=== PATIENT | female | born 1975 | race American Indian/Alaskan Native ===

== ENCOUNTER → 2024-04-09 | Outpatient (CLI) | payer MEDICAID, SELFPAY | END | disposition home or self-care (01) | PROVIDERS: PCP Physician Assistant; Referring Provider Physician Assistant; Visit Provider Student in an Organized Health Care Education/Training Program | DX: L97.521 Non-pressure chronic ulcer of other part of left foot limited to breakdown of skin (principal); M86.8X7 Other osteomyelitis, ankle and foot; R60.0 Localized edema; I10 Essential (primary) hypertension; M21.6X1 Other acquired deformities of right foot; E11.65 Type 2 diabetes mellitus with hyperglycemia; Z79.4 Long term (current) use of insulin | CPT/HCPCS: 97597; 99213; A9270; G0463 ==

== ENCOUNTER → 2024-04-23 | Outpatient (CLI) | payer MEDICAID, SELFPAY | END | disposition home or self-care (01) | LOC: SWHD 10:53 | PROVIDERS: PCP Physician Assistant; Referring Provider Physician Assistant; Visit Provider Surgery | DX: E11.621 Type 2 diabetes mellitus with foot ulcer (principal); L97.522 Non-pressure chronic ulcer of other part of left foot with fat layer exposed; M86.8X7 Other osteomyelitis, ankle and foot; R60.0 Localized edema; I10 Essential (primary) hypertension; M21.6X1 Other acquired deformities of right foot; E11.65 Type 2 diabetes mellitus with hyperglycemia; Z79.4 Long term (current) use of insulin | CPT/HCPCS: 11042; A9270 ==

== ENCOUNTER → 2024-05-07 | Outpatient (CLI) | payer MEDICAID, SELFPAY | END | disposition home or self-care (01) | LOC: SWHD 10:47 | PROVIDERS: PCP Physician Assistant; Referring Provider Physician Assistant; Visit Provider Student in an Organized Health Care Education/Training Program | DX: L97.522 Non-pressure chronic ulcer of other part of left foot with fat layer exposed (principal); M86.8X7 Other osteomyelitis, ankle and foot; R60.0 Localized edema; I10 Essential (primary) hypertension; M21.6X1 Other acquired deformities of right foot; E11.65 Type 2 diabetes mellitus with hyperglycemia; Z79.4 Long term (current) use of insulin | CPT/HCPCS: 99213; A9270; G0463 ==

== ENCOUNTER → 2024-05-14 | Outpatient (CLI) | payer MEDICAID, SELFPAY | END | disposition home or self-care (01) | LOC: SWHD 10:49 | PROVIDERS: PCP Physician Assistant; Referring Provider Physician Assistant; Visit Provider Student in an Organized Health Care Education/Training Program | DX: E11.621 Type 2 diabetes mellitus with foot ulcer (principal); L97.522 Non-pressure chronic ulcer of other part of left foot with fat layer exposed; M86.8X7 Other osteomyelitis, ankle and foot; R60.0 Localized edema; I10 Essential (primary) hypertension; M21.6X1 Other acquired deformities of right foot; E11.65 Type 2 diabetes mellitus with hyperglycemia; Z79.4 Long term (current) use of insulin | CPT/HCPCS: 11042; A9270 ==

== ENCOUNTER → 2024-05-21 | Outpatient (CLI) | payer MEDICAID, SELFPAY | END | disposition home or self-care (01) | LOC: SWHD 10:46 | PROVIDERS: PCP Physician Assistant; Referring Provider Physician Assistant; Visit Provider Student in an Organized Health Care Education/Training Program | DX: E11.621 Type 2 diabetes mellitus with foot ulcer (principal); L97.522 Non-pressure chronic ulcer of other part of left foot with fat layer exposed; M86.8X7 Other osteomyelitis, ankle and foot; R60.0 Localized edema; I10 Essential (primary) hypertension; M21.6X1 Other acquired deformities of right foot; E11.65 Type 2 diabetes mellitus with hyperglycemia; Z79.4 Long term (current) use of insulin | CPT/HCPCS: 97597; A9270 ==

== ENCOUNTER → 2024-05-28 | Outpatient (CLI) | payer MEDICAID, SELFPAY | END | disposition home or self-care (01) | LOC: SWHD 11:09 | PROVIDERS: PCP Physician Assistant; Referring Provider Physician Assistant; Visit Provider Surgery | DX: L97.322 Non-pressure chronic ulcer of left ankle with fat layer exposed (principal); I10 Essential (primary) hypertension; M17.0 Bilateral primary osteoarthritis of knee; M19.042 Primary osteoarthritis, left hand; M19.041 Primary osteoarthritis, right hand; M19.09 Primary osteoarthritis, other specified site; F17.200 Nicotine dependence, unspecified, uncomplicated; N18.32 Chronic kidney disease, stage 3b; R60.0 Localized edema; I73.9 Peripheral vascular disease, unspecified; E66.9 Obesity, unspecified | CPT/HCPCS: 99213; A9270; G0463 ==

== ENCOUNTER → 2024-06-04 | Outpatient (CLI) | payer MEDICAID, SELFPAY | END | disposition home or self-care (01) | LOC: SWHD 10:57 | PROVIDERS: PCP Physician Assistant; Referring Provider Physician Assistant; Visit Provider Student in an Organized Health Care Education/Training Program | DX: T81.89XA Other complications of procedures, not elsewhere classified, initial encounter (principal); L97.322 Non-pressure chronic ulcer of left ankle with fat layer exposed; I10 Essential (primary) hypertension; M17.0 Bilateral primary osteoarthritis of knee; M19.042 Primary osteoarthritis, left hand; M19.041 Primary osteoarthritis, right hand; M19.09 Primary osteoarthritis, other specified site; F17.200 Nicotine dependence, unspecified, uncomplicated; N18.32 Chronic kidney disease, stage 3b; R60.0 Localized edema; I73.9 Peripheral vascular disease, unspecified; E66.9 Obesity, unspecified | CPT/HCPCS: 11042; A9270 ==

== ENCOUNTER → 2024-06-11 | Outpatient (CLI) | payer MEDICAID, SELFPAY | END | disposition home or self-care (01) | LOC: SWHD 10:24 | PROVIDERS: PCP Physician Assistant; Referring Provider Physician Assistant; Visit Provider Student in an Organized Health Care Education/Training Program | DX: L97.522 Non-pressure chronic ulcer of other part of left foot with fat layer exposed (principal); I10 Essential (primary) hypertension; M17.0 Bilateral primary osteoarthritis of knee; M19.042 Primary osteoarthritis, left hand; M19.041 Primary osteoarthritis, right hand; F17.200 Nicotine dependence, unspecified, uncomplicated; N18.32 Chronic kidney disease, stage 3b; R60.0 Localized edema; I73.9 Peripheral vascular disease, unspecified; E66.9 Obesity, unspecified | CPT/HCPCS: 97597; A9270 ==

== ENCOUNTER → 2024-06-18 | Outpatient (CLI) | payer MEDICAID, SELFPAY | END | disposition home or self-care (01) | LOC: SWHD 10:41 | PROVIDERS: PCP Physician Assistant; Referring Provider Physician Assistant; Visit Provider Student in an Organized Health Care Education/Training Program | DX: T81.89XA Other complications of procedures, not elsewhere classified, initial encounter (principal); L97.522 Non-pressure chronic ulcer of other part of left foot with fat layer exposed; M17.0 Bilateral primary osteoarthritis of knee; M19.041 Primary osteoarthritis, right hand; M19.042 Primary osteoarthritis, left hand; F17.200 Nicotine dependence, unspecified, uncomplicated; N18.32 Chronic kidney disease, stage 3b; R60.0 Localized edema; I73.9 Peripheral vascular disease, unspecified; E66.9 Obesity, unspecified | CPT/HCPCS: 17250; A9270 ==

== ENCOUNTER → 2024-06-25 | Outpatient (CLI) | payer MEDICAID, SELFPAY | END | disposition home or self-care (01) | LOC: SWHD 10:17 | PROVIDERS: PCP Physician Assistant; Referring Provider Physician Assistant; Visit Provider Student in an Organized Health Care Education/Training Program | DX: T81.89XA Other complications of procedures, not elsewhere classified, initial encounter (principal); L97.522 Non-pressure chronic ulcer of other part of left foot with fat layer exposed; M17.0 Bilateral primary osteoarthritis of knee; M19.041 Primary osteoarthritis, right hand; M19.042 Primary osteoarthritis, left hand; F17.200 Nicotine dependence, unspecified, uncomplicated; N18.32 Chronic kidney disease, stage 3b; R60.0 Localized edema; I73.9 Peripheral vascular disease, unspecified; E66.9 Obesity, unspecified | CPT/HCPCS: 97597; A9270 ==

== ENCOUNTER → 2024-07-09 | Outpatient (CLI) | payer MEDICAID, SELFPAY | END | disposition home or self-care (01) | PROVIDERS: PCP Physician Assistant; Referring Provider Physician Assistant; Visit Provider Surgery | DX: T81.89XA Other complications of procedures, not elsewhere classified, initial encounter (principal); L97.522 Non-pressure chronic ulcer of other part of left foot with fat layer exposed; M17.0 Bilateral primary osteoarthritis of knee; M19.042 Primary osteoarthritis, left hand; M19.041 Primary osteoarthritis, right hand; F17.200 Nicotine dependence, unspecified, uncomplicated; N18.32 Chronic kidney disease, stage 3b; R60.0 Localized edema; I73.9 Peripheral vascular disease, unspecified; E66.9 Obesity, unspecified | CPT/HCPCS: 11042; A9270 ==

== ENCOUNTER → 2024-07-23 | Outpatient (CLI) | payer MEDICAID, SELFPAY | END | disposition home or self-care (01) | LOC: SWHD 14:42 | PROVIDERS: PCP Physician Assistant; Referring Provider Physician Assistant; Visit Provider Surgery | DX: T81.89XA Other complications of procedures, not elsewhere classified, initial encounter (principal); L97.522 Non-pressure chronic ulcer of other part of left foot with fat layer exposed; M17.0 Bilateral primary osteoarthritis of knee; M19.042 Primary osteoarthritis, left hand; M19.041 Primary osteoarthritis, right hand; F17.200 Nicotine dependence, unspecified, uncomplicated; R60.0 Localized edema; I73.9 Peripheral vascular disease, unspecified; E66.9 Obesity, unspecified | CPT/HCPCS: 11042; A9270 ==

== ENCOUNTER → 2024-07-30 | Outpatient (CLI) | payer MEDICAID, SELFPAY | END | disposition home or self-care (01) | LOC: SWHD 09:04 | PROVIDERS: PCP Physician Assistant; Referring Provider Physician Assistant; Visit Provider Student in an Organized Health Care Education/Training Program | DX: T81.89XA Other complications of procedures, not elsewhere classified, initial encounter (principal); L97.522 Non-pressure chronic ulcer of other part of left foot with fat layer exposed; M17.0 Bilateral primary osteoarthritis of knee; M19.042 Primary osteoarthritis, left hand; M19.041 Primary osteoarthritis, right hand; F17.200 Nicotine dependence, unspecified, uncomplicated; N18.32 Chronic kidney disease, stage 3b; R60.0 Localized edema; I73.9 Peripheral vascular disease, unspecified; E66.9 Obesity, unspecified | CPT/HCPCS: 97597; 29445; A9270 ==

== ENCOUNTER → 2024-08-02 | Outpatient (CLI) | payer MEDICAID, SELFPAY | END | disposition home or self-care (01) | LOC: SWHD 10:15 | PROVIDERS: PCP Physician Assistant; Referring Provider Physician Assistant; Visit Provider Student in an Organized Health Care Education/Training Program | DX: T81.89XA Other complications of procedures, not elsewhere classified, initial encounter (principal); L97.522 Non-pressure chronic ulcer of other part of left foot with fat layer exposed; M17.0 Bilateral primary osteoarthritis of knee; M19.042 Primary osteoarthritis, left hand; M19.041 Primary osteoarthritis, right hand; F17.200 Nicotine dependence, unspecified, uncomplicated; N18.32 Chronic kidney disease, stage 3b; R60.0 Localized edema; I73.9 Peripheral vascular disease, unspecified; E66.9 Obesity, unspecified | CPT/HCPCS: 11042; A9270 ==

== ENCOUNTER → 2024-08-09 | Outpatient (CLI) | payer MEDICAID, SELFPAY | END | disposition home or self-care (01) | LOC: SWHD 09:01 | PROVIDERS: PCP Physician Assistant; Referring Provider Physician Assistant; Visit Provider Student in an Organized Health Care Education/Training Program | DX: T81.89XA Other complications of procedures, not elsewhere classified, initial encounter (principal); L97.522 Non-pressure chronic ulcer of other part of left foot with fat layer exposed; M17.0 Bilateral primary osteoarthritis of knee; M19.042 Primary osteoarthritis, left hand; M19.041 Primary osteoarthritis, right hand; F17.200 Nicotine dependence, unspecified, uncomplicated; N18.32 Chronic kidney disease, stage 3b; R60.0 Localized edema; I73.9 Peripheral vascular disease, unspecified; E66.9 Obesity, unspecified | CPT/HCPCS: 11042; A9270 ==

== ENCOUNTER → 2024-08-16 | Outpatient (CLI) | payer MEDICAID, SELFPAY | END | disposition home or self-care (01) | LOC: SWHD 09:08 | PROVIDERS: PCP Physician Assistant; Referring Provider Physician Assistant; Visit Provider Student in an Organized Health Care Education/Training Program | DX: T81.89XA Other complications of procedures, not elsewhere classified, initial encounter (principal); L97.522 Non-pressure chronic ulcer of other part of left foot with fat layer exposed; M17.0 Bilateral primary osteoarthritis of knee; M19.042 Primary osteoarthritis, left hand; M19.041 Primary osteoarthritis, right hand; F17.200 Nicotine dependence, unspecified, uncomplicated; N18.32 Chronic kidney disease, stage 3b; R60.0 Localized edema; I73.9 Peripheral vascular disease, unspecified; E66.9 Obesity, unspecified | CPT/HCPCS: 11042; A9270 ==

== ENCOUNTER 2024-08-21 19:21 | Emergency (ER) | payer MEDICAID, SELFPAY ==
[2024-08-21 19:22] VITALS: BMI 31.3
[2024-08-21 19:28] VITALS: BP 103/70; PULSE 97; RESP 19; TEMP 37.1; O2SAT 96
--- NOTE | 2024-08-21 20:01 | PD.EDHA ---
ED Headache RME/HPI General Chief Complaint: Headache Stated Complaint: HEADACHE, EYE PAIN, NAUSEA Time Seen by Provider: 08/21/24 19:36 Arrival date/time: 08/21/24 19:21 RME / HPI RME / HPI Narrative: This section includes all my notes and documentations, including HPI, PE, and ED course. Aaron Mosley MD HPI: 48-year-old female here with severe headache on and off since this morning, about 10 hours ago. She describes throbbing, moving in location. With photophobia and phonophobia. And blurred vision with severe nausea. No other complaints ROS: All negative except as documented in HPI. Physical Exam: General: Alert and oriented. Appears uncomfortable. Eyes: Conjunctivae and lids clear. EOMI. PERRL. ENT: No nasal congestion. Pharynx normal. Tympanic membrane normal bilaterally. Neck: Supple. No carotid bruit. Heart: RRR. Lungs: No respiratory distress. Good air movement. No rhonchi, wheezing, rales. Abdomen: Soft and nontender. Normal bowel sounds. No distension. No rebound or guarding. Skin: Warm and dry. Neuro: Alert and oriented X 3. Cranial Nerves II-XII grossly intact. No peripheral motor deficits. I reviewed all diagnostic test results. My review of the head CT report is no acute findings. At this point, diagnoses include migraine headache. Treatment here included Zofran ODT and ibuprofen and Imitrex and two Tylenol #3. Significant improvement noted. Recommended supportive care. Based on my best medical judgment, made decision no further evaluation or treatment indicated at this time. Patient understands and agrees to the discharge instructions customized and printed, see below. Discharge Instructions from Dr. Mosley: --After evaluation, you were treated for a migraine headache.? Fortunately, there is no life-threatening condition.? Such as stroke or brain tumor. --When you get home, try to get some rest in the dark.? This can be the best treatment for migraine headache. --Try to eat regular nutritious meals, maintain good hydration, decrease stress, and get regular physical exercise.? Increase oral fluid and maintain clear urine.? If dark or yellow, increase oral fluid. --Take Zofran for nausea.? With migraines, controlling your nausea as soon as possible can help. --Take Imitrex as needed.? This works better if you take it at the onset of a migraine headache. Tylenol with codeine for severe pain. --See a private doctor of your choice on for recheck and further care. Ask to consider a referral to see a neurologist. --Read attached patient handouts and seek immediate medical care with worsening or with any concerns.? Aaron Mosley MD Related Data Home Medications ?Medication ?Instructions ?Recorded ?Confirmed atorvastatin 40 mg tablet 40 mg PO QDAY 02/03/21 11/12/23 insulin glargine 100 unit/mL (3 40 unit subcut HS 09/29/22 11/12/23 mL) subcutaneous pen (Basaglar KwikPen U-100 Insulin) semaglutide 7 mg tablet (Rybelsus) 7 mg PO QDAY 09/29/22 11/12/23 lisinopril 5 mg tablet 5 mg PO QDAY 11/12/23 11/12/23 Previous Rx's ?Medication ?Instructions ?Recorded blood-glucose sensor (FreeStyle #1 ea 11/14/23 Destiny 3 Sensor device) insulin lispro 100 unit/mL 13 unit (0.13 mL) subcut TID #15 mL 11/14/23 subcutaneous pen (Admelog SoloStar U-100 Insulin lispro) acetaminophen 300 mg-codeine 30 mg 2 tab PO Q8H PRN pain #20 tabs 08/21/24 tablet ondansetron 4 mg disintegrating 4 mg PO TID PRN nausea and 08/21/24 tablet vomiting 30 days #10 tabs sumatriptan succinate 25 mg tablet 25 mg PO Q2H PRN migraine headache 08/21/24 (Imitrex) #10 tabs Allergies Allergy/AdvReac Type Severity Reaction Status Date / Time No Known Allergies Allergy Verified 08/21/24 19:22 Course Quality Measures none Orders Category Date Time Status CT head/brain wo con Stat Exams 08/21/24 20:02 Completed ACETAMINOPHEN w/COD 300-30 [Tylenol w/Cod #3] Med 08/21/24 20:02 Discontinued 2 tab PO X1 ONE Ibuprofen Tab [Motrin Tab] Med 08/21/24 20:02 Discontinued 800 mg PO X1 ONE Ondansetron Odt [Zofran Odt] Med 08/21/24 20:02 Discontinued 4 mg PO X1 ONE SUMAtriptan [Imitrex] Med 08/21/24 20:02 Discontinued 50 mg PO X1 ONE Vital Signs Vital signs: Vital Signs Temperature 98.8 F 08/21/24 19:28 Pulse Rate 97 08/21/24 19:28 Respiratory Rate 19 08/21/24 19:28 Blood Pressure 103/70 08/21/24 19:28 Pulse Oximetry (%) 96 08/21/24 19:28 Oxygen Delivery Method Room Air 08/21/24 19:28 Headache Patient data External records reviewed:: [facility] previous records Clinical information provided by:: patient Social determinants that could affect healthcare access:: none Patient has the following chronic illnesses:: DM How is presenting disease/condition affected by chronic disease/condition?: uneffected by Evaluation data The following diagnostics were reviewed and interpreted by me:: radiology exam(s) Lab and/or radiology exams considered but not ordered:: None Interpretation Summary: My review of the head CT report is no acute findings. Medications / Prescriptions Medications or Prescriptions considered but not ordered:: None Medication administrations:: Medication Administration History Discontinued Medications Acetaminophen/Codeine Phosphate (Acetaminophen W/Cod 300-30 Tablet) 2 tab PO X1 ONE Stop: 08/21/24 20:03 Last Admin: 08/21/24 21:08 Dose: 2 tab Documented By: DANIEL Ibuprofen (Ibuprofen Tab 400 Mg Tablet) 800 mg PO X1 ONE Stop: 08/21/24 20:03 Last Admin: 08/21/24 21:08 Dose: 800 mg Documented By: DANIEL Ondansetron HCl (Ondansetron Odt 4 Mg Tabrap) 4 mg PO X1 ONE; Protocol Stop: 08/21/24 20:03 Last Admin: 08/21/24 21:08 Dose: 4 mg Documented By: DANIEL Sumatriptan Succinate (Sumatriptan 25 Mg Tablet) 50 mg PO X1 ONE Stop: 08/21/24 20:03 Last Admin: 08/21/24 21:36 Dose: Not Given Documented By: BOB Non-Admin Reason: Discontinued Zofran and Imitrex and ibuprofen and two Tylenol #3 Consultations Consultation(s) initiated? (list below): No Diagnosis Differential diagnosis headache: migraine, tension headache, subarachnoid hemorrhage and sinusitis Most likely diagnosis given after review of the tests above:: Migraine headache Admission Indicated Admission indicated?: not indicated Explain why admission is indicated or not indicated:: With significant improvement, there was no indication for admission. Admission Request Was there a request for admission?: No Disposition Plan Disposition Plan: Discharge Discharge Attestation Discharge Attestation: The patient and all family members were given an opportunity to ask questions and understood the discharge instructions. Discharge instructions specifically effects, indications for sooner follow up or return to the emergency department, and the expected course of current diagnosis. Patient condition: Stable Discharge Plan Plan Patient Disposition: HOME (Self Care) Prescriptions/Referrals Prescriptions/Med Rec: New sumatriptan succinate [Imitrex] 25 mg tablet 25 mg PO Q2H PRN (Reason: migraine headache) Qty: 10 0RF Rx Instructions: do not exceed 8 doses per 24 hrs acetaminophen-codeine 300-30 mg tablet 2 tab PO Q8H MDD 6 PRN (Reason: pain) Qty: 20 0RF ondansetron 4 mg tablet,disintegrating 4 mg PO TID PRN (Reason: nausea and vomiting) 30 Days Qty: 10 0RF No Action atorvastatin 40 mg tablet 40 mg PO QDAY Patient Comments: TAKE 1 TABLET BY MOUTH EVERY DAY lisinopril 5 mg tablet 5 mg PO QDAY Patient Comments: TAKE 1 TABLET BY MOUTH EVERY DAY insulin lispro [Admelog SoloStar U-100 Insulin] 100 unit/mL insulin pen 13 unit SUBCUT TID Qty: 15 3RF Patient Comments: INJECT BY SUBCUTANEOUS ROUTE PER PRESCRIBER'S INSTRUCTIONS. 20 UNITS WITH MEALS 3 TIMES A DAY Rx Instructions: with meals (DME) FreeStyle Destiny 3 Sensor Device See Rx Instructions .Route Qty: 1 0RF Rx Instructions: As directed insulin glargine [Basaglar KwikPen U-100 Insulin] 100 unit/mL (3 mL) insulin pen 40 unit SUBCUT HS Patient Comments: INJECT 50 UNITS BY SUBCUTANEOUS ROUTE EVERY DAY Rybelsus 7 mg tablet 7 mg PO QDAY Patient Comments: PLEASE SEE ATTACHED FOR DETAILED DIRECTIONS Referrals: No Primary/Family,Physician [Primary Care Provider] - In 1 week Problem List Clinical Impression: Migraine headache Patient/Caregiver Discharge Instructions Discharge Activity: activity as tolerated Education Materials: ED Headache, Migraine, Classic Additional Instructions: Discharge Instructions from Dr. Mosley: --After evaluation, you were treated for a migraine headache.? Fortunately, there is no life-threatening condition.? Such as stroke or brain tumor. --When you get home, try to get some rest in the dark.? This can be the best treatment for migraine headache. --Try to eat regular nutritious meals, maintain good hydration, decrease stress, and get regular physical exercise.? Increase oral fluid and maintain clear urine.? If dark or yellow, increase oral fluid. --Take Zofran for nausea.? With migraines, controlling your nausea as soon as possible can help. --Take Imitrex as needed.? This works better if you take it at the onset of a migraine headache. Tylenol with codeine for severe pain. --See a private doctor of your choice on for recheck and further care. Ask to consider a referral to see a neurologist. --Read attached patient handouts and seek immediate medical care with worsening or with any concerns.? Print Language: Polish Stand Alone Forms: Elyssa Award Info., Patient Portal Info Letter
--- NOTE | 2024-08-21 20:02 | XR_ITS ---
Examination: CT brain head without contrast. 2-D sagittal coronal reconstructions Date and time of exam:August 21, 20242016 hrs. Indications: Onset severe headache today CTDI: vol (mGy):50.4 DLP: (mGycm):1003 Technique: Multiple CT axial sections of the brain have been obtained, 5 mm slice thickness. Contrast has not been administered. 2-D sagittal, coronal reconstructions have been obtained Low dose protocols were performed. One or more of the following dose reduction techniques were used; automated exposure control, adjustment of the mA and/or KV according to patient size, use of iterative reconstruction technique. Findings: No significant ventricular enlargement. Intra-axial or extra-axial hemorrhage density is not seen. No mass effect or midline shift Basal cisterns are not remarkable. Fourth ventricle is midline. Cranial vault intact. Impression: Negative for acute hemorrhage, mass effect or midline shift Advise clinical correlation follow-up accordingly
[2024-08-21] MEDS: IBUPROFEN TAB 400 MG TABLET 800 MG PO (21:08)
[2024-08-21] MEDS: ACETAMINOPHEN w/COD 300-30 TABLET 2 TAB PO (21:08)
[2024-08-21] MEDS: ONDANSETRON ODT 4 MG TABRAP PO (21:08)
[2024-08-21 21:52] VITALS: BP 121/82; PULSE 90; RESP 17; TEMP 36.9; O2SAT 96
== END 2024-08-21 21:54 | disposition home or self-care (01) ==
PROVIDERS: Emergency Provider Emergency Medicine
DX: G43.909 Migraine, unspecified, not intractable, without status migrainosus (principal)
CPT/HCPCS: 70450; 99284; Q0162; A9270

== ENCOUNTER → 2024-08-23 | Outpatient (CLI) | payer MEDICAID, SELFPAY | END | disposition home or self-care (01) | PROVIDERS: PCP Physician Assistant; Referring Provider Physician Assistant; Visit Provider Student in an Organized Health Care Education/Training Program | DX: T81.89XA Other complications of procedures, not elsewhere classified, initial encounter (principal); L97.522 Non-pressure chronic ulcer of other part of left foot with fat layer exposed; M17.0 Bilateral primary osteoarthritis of knee; M19.042 Primary osteoarthritis, left hand; M19.041 Primary osteoarthritis, right hand; F17.200 Nicotine dependence, unspecified, uncomplicated; N18.32 Chronic kidney disease, stage 3b; R60.0 Localized edema; I73.9 Peripheral vascular disease, unspecified; E66.9 Obesity, unspecified; M25.872 Other specified joint disorders, left ankle and foot | CPT/HCPCS: 97597; A9270 ==

== ENCOUNTER 2024-08-25 18:16 | Emergency (ER) | payer MEDICAID, SELFPAY ==
[2024-08-25 19:40] VITALS: BP 122/74; PULSE 94; RESP 19; TEMP 37.2; O2SAT 96; BMI 34.4
--- NOTE | 2024-08-25 19:47 | PD.EDANKLE ---
Lower Extremity Injury RME/HPI General Chief Complaint: Ankle/Foot Injury Stated Complaint: INFECTION LEFT FOOT Time Seen by Provider: 08/25/24 18:27 Arrival date/time: 08/25/24 18:16 RME / HPI RME / HPI Narrative: 48-year-old female patient with a significant history of Charcot joint left ankle, came in for evaluation regarding abrasion noted on the lateral aspect of the ankle. Patient was seen by PCP last week and was started on Keflex and doxycycline. Patient continued to have pain that is why the patient came in for prior evaluation. Patient is denying any fever denies any redness denies any other complaints no medication was taken prior to arrival. Patient was advised to have below-knee amputation in the past however still refusing it. Patient is nonambulatory to the left lower extremity. Related Data Home Medications ?Medication ?Instructions ?Recorded ?Confirmed atorvastatin 40 mg tablet 40 mg PO QDAY 02/03/21 11/12/23 insulin glargine 100 unit/mL (3 40 unit subcut HS 09/29/22 11/12/23 mL) subcutaneous pen (Basaglar KwikPen U-100 Insulin) semaglutide 7 mg tablet (Rybelsus) 7 mg PO QDAY 09/29/22 11/12/23 lisinopril 5 mg tablet 5 mg PO QDAY 11/12/23 11/12/23 Previous Rx's ?Medication ?Instructions ?Recorded blood-glucose sensor (FreeStyle #1 ea 11/14/23 Destiny 3 Sensor device) insulin lispro 100 unit/mL 13 unit (0.13 mL) subcut TID #15 mL 11/14/23 subcutaneous pen (Admelog SoloStar U-100 Insulin lispro) acetaminophen 300 mg-codeine 30 mg 2 tab PO Q8H PRN pain #20 tabs 08/21/24 tablet ondansetron 4 mg disintegrating 4 mg PO TID PRN nausea and 08/21/24 tablet vomiting 30 days #10 tabs sumatriptan succinate 25 mg tablet 25 mg PO Q2H PRN migraine headache 08/21/24 (Imitrex) #10 tabs ibuprofen 800 mg tablet 800 mg PO TID PRN pain #30 tabs 08/25/24 Allergies Allergy/AdvReac Type Severity Reaction Status Date / Time No Known Allergies Allergy Verified 08/25/24 18:18 Review of Systems Review of Systems Narrative Review of Systems: Review of system reviewed and within normal limits except mentioned in HPI ED Exam Narrative Physical exam: VITAL SIGNS: Reviewed. GENERAL APPEARANCE: Alert and interactive, follows commands, no acute distress, HEAD AND FACE: Non-traumatic. ENT: PERRL, pink conjunctivitis, eyelid no trauma, Mucous membrane moist. NECK: Supple, nontender, no nuchal rigidity. RECTAL: Deferred. GENITAL: Deferred. NEUROLOGICAL: Gross motor function intact sensory function intact, Appropriate for age. MUSCULOSKELETAL: low back nontender, full range of motion. EXTREMITIES: Left ankle deformity, swelling, no redness with abrasion noted in the lateral aspect, limitation range of motion. SKIN: Color pink, dry, no rash, no lacerations, no abrasions, no contusions. LYMPHATICS: Deferred. Course Quality Measures none Orders Category Date Time Status Ketorolac Inj [Toradol Inj] Med 08/25/24 19:47 Discontinued 30 mg IM X1 ONE Vital Signs Vital signs: Vital Signs Temperature 98.9 F 08/25/24 19:40 Pulse Rate 94 08/25/24 19:40 Respiratory Rate 19 08/25/24 19:40 Blood Pressure 122/74 08/25/24 19:40 Pulse Oximetry (%) 96 08/25/24 19:40 Oxygen Delivery Method Room Air 08/25/24 19:40 Extremity Injury, Lower MDM Narrative MDM Narrative:: 48-year-old female patient with a significant history of Charcot joint left ankle, came in for evaluation regarding abrasion noted on the lateral aspect of the ankle. Patient was seen by PCP last week and was started on Keflex and doxycycline. Patient continued to have pain that is why the patient came in for prior evaluation. Patient is denying any fever denies any redness denies any other complaints no medication was taken prior to arrival. Patient was advised to have below-knee amputation in the past however still refusing it. Patient is nonambulatory to the left lower extremity. Clinically there is no sign of redness, infection to these Charcot joint or ankle. There is an abrasion however is not infected. Patient was advised to see her PCP and for referral to orthopedic surgeon for definitive management of the Charcot joints possible amputation below the knee. Patient data External records reviewed:: None Clinical information provided by:: patient Social determinants that could affect healthcare access:: none Patient has the following chronic illnesses:: Diabetes mellitus, history of Charcot joint ankle How is presenting disease/condition affected by chronic disease/condition?: exacerbated by Evaluation data The following diagnostics were reviewed and interpreted by me:: other (specify) Lab and/or radiology exams considered but not ordered:: None Interpretation Summary: None Medications / Prescriptions Medications or Prescriptions considered but not ordered:: None Medication administrations:: Medication Administration History Discontinued Medications Ketorolac Tromethamine (Ketorolac Inj 60 Mg/2 Ml Vial) 30 mg IM X1 ONE Stop: 08/25/24 19:48 Last Admin: 08/25/24 20:10 Dose: 30 mg Documented By: Toradol IM Consultations Consultation(s) initiated? (list below): No Diagnosis Extremity Injury, Lower Differential Diagnosis: ankle sprain and strain and other (Ankle abrasion, Charcot joint ankle) Most likely diagnosis given after review of the tests above:: Charcot joint ankle, ankle abrasion Admission Indicated Admission indicated?: not indicated Admission Request Was there a request for admission?: No Disposition Plan Disposition Plan: Discharge Discharge Attestation Discharge Attestation: The patient and all family members were given an opportunity to ask questions and understood the discharge instructions. Discharge instructions specifically effects, indications for sooner follow up or return to the emergency department, and the expected course of current diagnosis. Patient condition: Stable Discharge Plan Plan Patient Disposition: HOME (Self Care) Disposition Comment: Stable Prescriptions/Referrals Prescriptions/Med Rec: New ibuprofen 800 mg tablet 800 mg PO TID PRN (Reason: pain) Qty: 30 0RF No Action atorvastatin 40 mg tablet 40 mg PO QDAY Patient Comments: TAKE 1 TABLET BY MOUTH EVERY DAY lisinopril 5 mg tablet 5 mg PO QDAY Patient Comments: TAKE 1 TABLET BY MOUTH EVERY DAY insulin lispro [Admelog SoloStar U-100 Insulin] 100 unit/mL insulin pen 13 unit SUBCUT TID Qty: 15 3RF Patient Comments: INJECT BY SUBCUTANEOUS ROUTE PER PRESCRIBER'S INSTRUCTIONS. 20 UNITS WITH MEALS 3 TIMES A DAY Rx Instructions: with meals (DME) FreeStyle Destiny 3 Sensor Device See Rx Instructions .Route Qty: 1 0RF Rx Instructions: As directed insulin glargine [Basaglar KwikPen U-100 Insulin] 100 unit/mL (3 mL) insulin pen 40 unit SUBCUT HS Patient Comments: INJECT 50 UNITS BY SUBCUTANEOUS ROUTE EVERY DAY Rybelsus 7 mg tablet 7 mg PO QDAY Patient Comments: PLEASE SEE ATTACHED FOR DETAILED DIRECTIONS sumatriptan succinate [Imitrex] 25 mg tablet 25 mg PO Q2H PRN (Reason: migraine headache) Qty: 10 0RF Rx Instructions: do not exceed 8 doses per 24 hrs acetaminophen-codeine 300-30 mg tablet 2 tab PO Q8H MDD 6 PRN (Reason: pain) Qty: 20 0RF ondansetron 4 mg tablet,disintegrating 4 mg PO TID PRN (Reason: nausea and vomiting) 30 Days Qty: 10 0RF Problem List Clinical Impression: Charcot ankle, Abrasion of ankle Patient/Caregiver Discharge Instructions Discharge Activity: activity as tolerated Education Materials: What is Charcot Foot?, ED Abrasions Additional Instructions: Thank you for the opportunity for serving you today. You are stable for discharged . You are advised to: Follow-up with your PCP in 1 to 2 days Return to ED for worsening of symptoms Increase oral fluids Take medication as prescribed Continue taking your antibiotic prescribed by your PCP Daily dressing with bacitracin as needed Print Language: Gambian Stand Alone Forms: Elyssa Award Info., Patient Portal Info Letter PA/GONZALO Supervising Physician PA/GONZALO Supervising Physician: MD David
[2024-08-25] MEDS: KETOROLAC INJ 60 MG/2 ML VIAL 30 MG IM (20:10)
== END 2024-08-25 20:41 | disposition home or self-care (01) ==
LOC: SERX 20:32
PROVIDERS: Emergency Provider Emergency Medicine; PCP Physician Assistant
DX: S90.512A Abrasion, left ankle, initial encounter (principal); A52.16 Charcot's arthropathy (tabetic)
CPT/HCPCS: 96372; 99283; J1885

== ENCOUNTER → 2024-08-30 | Outpatient (CLI) | payer MEDICAID, SELFPAY | END | disposition home or self-care (01) | LOC: SWHD 09:55 | PROVIDERS: PCP Physician Assistant; Referring Provider Physician Assistant; Visit Provider Student in an Organized Health Care Education/Training Program | DX: T81.89XA Other complications of procedures, not elsewhere classified, initial encounter (principal); L97.522 Non-pressure chronic ulcer of other part of left foot with fat layer exposed; M17.0 Bilateral primary osteoarthritis of knee; M19.042 Primary osteoarthritis, left hand; M19.041 Primary osteoarthritis, right hand; F17.200 Nicotine dependence, unspecified, uncomplicated; E66.9 Obesity, unspecified; I73.9 Peripheral vascular disease, unspecified; R60.0 Localized edema; M25.872 Other specified joint disorders, left ankle and foot; N18.32 Chronic kidney disease, stage 3b | CPT/HCPCS: 97597; A9270 ==

== ENCOUNTER → 2024-09-06 | Outpatient (CLI) | payer MEDICAID, SELFPAY | END | disposition home or self-care (01) | LOC: SWHD 10:24 | PROVIDERS: PCP Physician Assistant; Referring Provider Physician Assistant; Visit Provider Surgery | DX: L97.522 Non-pressure chronic ulcer of other part of left foot with fat layer exposed (principal); M17.0 Bilateral primary osteoarthritis of knee; M19.042 Primary osteoarthritis, left hand; M19.041 Primary osteoarthritis, right hand; F17.200 Nicotine dependence, unspecified, uncomplicated; E66.9 Obesity, unspecified; I73.9 Peripheral vascular disease, unspecified; R60.0 Localized edema; M25.872 Other specified joint disorders, left ankle and foot; N18.32 Chronic kidney disease, stage 3b | CPT/HCPCS: 11042; A9270 ==

== ENCOUNTER → 2024-09-13 | Outpatient (CLI) | payer MEDICAID, SELFPAY | END | disposition home or self-care (01) | LOC: SWHD 10:15 | PROVIDERS: PCP Physician Assistant; Referring Provider Physician Assistant; Visit Provider Student in an Organized Health Care Education/Training Program | DX: E11.621 Type 2 diabetes mellitus with foot ulcer (principal); L97.522 Non-pressure chronic ulcer of other part of left foot with fat layer exposed; M17.0 Bilateral primary osteoarthritis of knee; M19.042 Primary osteoarthritis, left hand; M19.041 Primary osteoarthritis, right hand; F17.200 Nicotine dependence, unspecified, uncomplicated; E66.9 Obesity, unspecified; I73.9 Peripheral vascular disease, unspecified; R60.0 Localized edema; M25.872 Other specified joint disorders, left ankle and foot; N18.32 Chronic kidney disease, stage 3b | CPT/HCPCS: 17250; A9270 ==

== ENCOUNTER → 2024-09-27 | Outpatient (CLI) | payer MEDICAID, SELFPAY | END | disposition home or self-care (01) | LOC: SWHD 10:51 | PROVIDERS: PCP Physician Assistant; Referring Provider Physician Assistant; Visit Provider Student in an Organized Health Care Education/Training Program | DX: L97.522 Non-pressure chronic ulcer of other part of left foot with fat layer exposed (principal); M17.0 Bilateral primary osteoarthritis of knee; M19.042 Primary osteoarthritis, left hand; M19.041 Primary osteoarthritis, right hand; F17.200 Nicotine dependence, unspecified, uncomplicated; E66.9 Obesity, unspecified; I73.9 Peripheral vascular disease, unspecified; R60.0 Localized edema; M25.872 Other specified joint disorders, left ankle and foot; N18.32 Chronic kidney disease, stage 3b | CPT/HCPCS: 97597; A9270 ==

== ENCOUNTER → 2024-10-04 | Outpatient (CLI) | payer MEDICAID, SELFPAY | END | disposition home or self-care (01) | LOC: SWHD 11:04 | PROVIDERS: PCP Physician Assistant; Referring Provider Physician Assistant; Visit Provider Student in an Organized Health Care Education/Training Program | DX: L97.522 Non-pressure chronic ulcer of other part of left foot with fat layer exposed (principal); M17.0 Bilateral primary osteoarthritis of knee; M19.042 Primary osteoarthritis, left hand; M19.041 Primary osteoarthritis, right hand; F17.200 Nicotine dependence, unspecified, uncomplicated; E66.9 Obesity, unspecified; I73.9 Peripheral vascular disease, unspecified; R60.0 Localized edema; M25.872 Other specified joint disorders, left ankle and foot; N18.32 Chronic kidney disease, stage 3b | CPT/HCPCS: 97597; A9270 ==

== ENCOUNTER → 2024-10-12 | Outpatient (CLI) | payer MEDICAID, SELFPAY | END | disposition home or self-care (01) | LOC: SWHD 11:00 | PROVIDERS: PCP Physician Assistant; Referring Provider Physician Assistant; Visit Provider Physician Assistant | DX: L97.521 Non-pressure chronic ulcer of other part of left foot limited to breakdown of skin (principal); M17.0 Bilateral primary osteoarthritis of knee; M19.042 Primary osteoarthritis, left hand; M19.041 Primary osteoarthritis, right hand; F17.200 Nicotine dependence, unspecified, uncomplicated; E66.9 Obesity, unspecified; R60.0 Localized edema; M25.872 Other specified joint disorders, left ankle and foot; N18.32 Chronic kidney disease, stage 3b | CPT/HCPCS: 97597; A9270 ==

== ENCOUNTER → 2024-10-18 | Outpatient (CLI) | payer MEDICAID, SELFPAY | END | disposition home or self-care (01) | LOC: SWHD 08:53 | PROVIDERS: PCP Physician Assistant; Referring Provider Physician Assistant; Visit Provider Student in an Organized Health Care Education/Training Program | DX: L97.522 Non-pressure chronic ulcer of other part of left foot with fat layer exposed (principal); M17.0 Bilateral primary osteoarthritis of knee; M19.042 Primary osteoarthritis, left hand; M19.041 Primary osteoarthritis, right hand; F17.200 Nicotine dependence, unspecified, uncomplicated; E66.9 Obesity, unspecified; R60.0 Localized edema; M25.872 Other specified joint disorders, left ankle and foot; N18.32 Chronic kidney disease, stage 3b; L97.322 Non-pressure chronic ulcer of left ankle with fat layer exposed | CPT/HCPCS: 17250; A9270 ==

== ENCOUNTER → 2024-10-25 | Outpatient (CLI) | payer MEDICAID, SELFPAY | END | disposition home or self-care (01) | LOC: SWHD 09:47 | PROVIDERS: PCP Physician Assistant; Referring Provider Physician Assistant; Visit Provider Student in an Organized Health Care Education/Training Program | DX: L97.521 Non-pressure chronic ulcer of other part of left foot limited to breakdown of skin (principal); M17.0 Bilateral primary osteoarthritis of knee; M19.042 Primary osteoarthritis, left hand; M19.041 Primary osteoarthritis, right hand; F17.200 Nicotine dependence, unspecified, uncomplicated; E66.9 Obesity, unspecified; R60.0 Localized edema; M25.872 Other specified joint disorders, left ankle and foot; N18.32 Chronic kidney disease, stage 3b | CPT/HCPCS: 97597; A9270 ==

== ENCOUNTER → 2024-11-01 | Outpatient (CLI) | payer MEDICAID, SELFPAY | END | disposition home or self-care (01) | LOC: SWHD 10:17 | PROVIDERS: PCP Physician Assistant; Referring Provider Physician Assistant; Visit Provider Student in an Organized Health Care Education/Training Program | DX: L97.521 Non-pressure chronic ulcer of other part of left foot limited to breakdown of skin (principal); M17.0 Bilateral primary osteoarthritis of knee; M19.042 Primary osteoarthritis, left hand; M19.041 Primary osteoarthritis, right hand; F17.200 Nicotine dependence, unspecified, uncomplicated; E66.9 Obesity, unspecified; R60.0 Localized edema; M25.872 Other specified joint disorders, left ankle and foot; N18.32 Chronic kidney disease, stage 3b | CPT/HCPCS: 97597; 11042; A9270 ==

== ENCOUNTER → 2024-11-08 | Outpatient (CLI) | payer MEDICAID, SELFPAY | END | disposition home or self-care (01) | LOC: SWHD 11:02 | PROVIDERS: PCP Physician Assistant; Referring Provider Physician Assistant; Visit Provider Student in an Organized Health Care Education/Training Program | DX: L97.521 Non-pressure chronic ulcer of other part of left foot limited to breakdown of skin (principal); M17.0 Bilateral primary osteoarthritis of knee; M19.042 Primary osteoarthritis, left hand; M19.041 Primary osteoarthritis, right hand; F17.200 Nicotine dependence, unspecified, uncomplicated; E66.9 Obesity, unspecified; R60.0 Localized edema; M25.872 Other specified joint disorders, left ankle and foot; N18.32 Chronic kidney disease, stage 3b; L97.322 Non-pressure chronic ulcer of left ankle with fat layer exposed | CPT/HCPCS: 99213; A9270; G0463 ==

== ENCOUNTER → 2024-11-29 | Outpatient (CLI) | payer MEDICAID, SELFPAY | END | disposition home or self-care (01) | LOC: SWHD 10:50 | PROVIDERS: PCP Physician Assistant; Referring Provider Physician Assistant; Visit Provider Student in an Organized Health Care Education/Training Program | DX: L97.528 Non-pressure chronic ulcer of other part of left foot with other specified severity (principal); L97.322 Non-pressure chronic ulcer of left ankle with fat layer exposed; M17.0 Bilateral primary osteoarthritis of knee; M19.042 Primary osteoarthritis, left hand; M19.041 Primary osteoarthritis, right hand; F17.200 Nicotine dependence, unspecified, uncomplicated; E66.9 Obesity, unspecified; R60.0 Localized edema; M25.872 Other specified joint disorders, left ankle and foot; N18.32 Chronic kidney disease, stage 3b | CPT/HCPCS: 97597; 17250; A9270 ==

== ENCOUNTER → 2024-12-05 | Outpatient (CLI) | payer MEDICAID, SELFPAY | END | disposition home or self-care (01) | LOC: SWHD 13:45 | PROVIDERS: PCP Physician Assistant; Referring Provider Physician Assistant; Visit Provider Student in an Organized Health Care Education/Training Program | DX: L97.528 Non-pressure chronic ulcer of other part of left foot with other specified severity (principal); L97.322 Non-pressure chronic ulcer of left ankle with fat layer exposed; M17.0 Bilateral primary osteoarthritis of knee; M19.042 Primary osteoarthritis, left hand; M19.041 Primary osteoarthritis, right hand; F17.200 Nicotine dependence, unspecified, uncomplicated; E66.9 Obesity, unspecified; R60.0 Localized edema; M25.872 Other specified joint disorders, left ankle and foot; N18.32 Chronic kidney disease, stage 3b | CPT/HCPCS: 17250; 29445; A9270 ==

== ENCOUNTER → 2024-12-13 | Outpatient (CLI) | payer MEDICAID, SELFPAY | END | disposition home or self-care (01) | LOC: SWHD 09:52 | PROVIDERS: PCP Physician Assistant; Referring Provider Physician Assistant; Visit Provider Student in an Organized Health Care Education/Training Program | DX: L97.528 Non-pressure chronic ulcer of other part of left foot with other specified severity (principal); L97.322 Non-pressure chronic ulcer of left ankle with fat layer exposed; M17.0 Bilateral primary osteoarthritis of knee; M19.042 Primary osteoarthritis, left hand; M19.041 Primary osteoarthritis, right hand; F17.200 Nicotine dependence, unspecified, uncomplicated; E66.9 Obesity, unspecified; R60.0 Localized edema; M25.872 Other specified joint disorders, left ankle and foot; N18.32 Chronic kidney disease, stage 3b | CPT/HCPCS: 29445; A9270 ==

== ENCOUNTER → 2024-12-20 | Outpatient (CLI) | payer MEDICAID, SELFPAY | END | disposition home or self-care (01) | LOC: SWHD 10:35 | PROVIDERS: PCP Physician Assistant; Referring Provider Physician Assistant; Visit Provider Student in an Organized Health Care Education/Training Program | DX: L97.528 Non-pressure chronic ulcer of other part of left foot with other specified severity (principal); L97.322 Non-pressure chronic ulcer of left ankle with fat layer exposed; M17.0 Bilateral primary osteoarthritis of knee; M19.042 Primary osteoarthritis, left hand; M19.041 Primary osteoarthritis, right hand; F17.200 Nicotine dependence, unspecified, uncomplicated; M25.872 Other specified joint disorders, left ankle and foot; N18.32 Chronic kidney disease, stage 3b | CPT/HCPCS: 97597; 29445; A9270 ==

== ENCOUNTER 2024-12-21 16:31 | Emergency (ER) | payer MEDICAID, SELFPAY ==
[2024-12-21 16:32] VITALS: BMI 39.1
[2024-12-21 16:53] VITALS: BP 135/83; PULSE 108; RESP 18; TEMP 37.4; O2SAT 97
--- NOTE | 2024-12-21 17:07 | PD.EDRME ---
Rapid Medical Screening Exam RME Arrival date/time: 12/21/24 16:31 49-year-old female with a history of hyperlipidemia, type 2 diabetes presents to the emergency room with a chief complaint of pain, tenderness to her left lower extremity. Patient was sent over by her primary care provider for an MRI of her left lower extremity to rule out osteomyelitis in the foot I have greeted and performed a focused initial assessment of this patient. A comprehensive ED assessment and evaluation of the patient, analysis of all test results, and completion of the medical decision making process will be conducted by additional ED providers. Chief Complaint: Wound Recheck / Suture Removal Time Seen by Provider: 12/21/24 16:55 Vital signs: Vital Signs Temperature 99.3 F 12/21/24 16:53 Pulse Rate 108 H 12/21/24 16:53 Respiratory Rate 18 12/21/24 16:53 Blood Pressure 135/83 H 12/21/24 16:53 Pulse Oximetry (%) 97 12/21/24 16:53 Oxygen Delivery Method Room Air 12/21/24 16:53 Vital signs reviewed by provider: Yes
[2024-12-21 17:52] LABS: Lactate (Lactic Acid) 1.8 mMol/L (0.4-2.0)
[2024-12-21 17:56] LABS: Basophils # (Auto) 0.1 Thou/mm3 (0.0-0.2); Basophils % (Auto) 0 % (0-2.5); Eosinophils # (Auto) 0.0 Thou/mm3 (0.0-0.5); Eosinophils % (Auto) 0 % (0-10); Hematocrit 38.6 % (36.0-46.0); Hemoglobin 13.0 g/dL (12.0-16.0); Immature Granulocytes Auto 0.05 Thou/mm3 (0.00-0.00); Lymphocytes # (Auto) 2.6 Thou/mm3 (1.0-4.8); Lymphocytes % (Auto) 19 % (10-50); Mean Corpuscular HGB Conc 33.7 g/dl (31.0-37.0); Mean Corpuscular Hemoglobin 32.3 pg (25.0-35.0); Mean Corpuscular Volume 96 fL (80-100); Monocytes # (Auto) 1.0 Thou/mm3 (0.0-0.8); Monocytes % (Auto) 7 % (0-12); Neutrophils # (Auto) 10.1 Thou/mm3 (1.8-7.7); Neutrophils % (Auto) 73 % (37-80); Nucleated Red Blood Cell # 0.00 Thou/mm3 (0.00-0.00); Nucleated Red Blood Cell % 0 /100 WBC (0); Platelet Count 208 Thou/mm3 (140-440); RDW Standard Deviation 47.4 fL (36.4-46.3); Red Blood Count 4.02 Miln/mm3 (4.00-5.20); White Blood Count 13.8 Thou/mm3 (3.6-11.0)
[2024-12-21 18:19] LABS: Sed Rate (ESR) 119 mm/hr (0-30)
[2024-12-21 18:30] LABS: Alanine Aminotransferase 32 U/L (10-49); Albumin, Serum 4.1 gm/dL (3.5-5.0); Albumin/Globulin Ratio 1.1 (1.2-2.2); Alkaline Phosphatase 74 U/L (46-116); Anion Gap 10 (7-16); Aspartate Amino Transferase 16 U/L (0-34); BUN/Creatinine Ratio 12 Ratio (12-20); Bilirubin,Total 1.8 mg/dL (0.3-1.2); Blood Urea Nitrogen 14 mg/dL (9-23); C-Reactive Protein > 10.0 mg/dL (0.0-0.9); Calcium 9.3 mg/dL (8.3-10.6); Calcium (Corrected) 9.3 mg/dL (8.5-10.1); Carbon Dioxide 24.7 mMol/L (20.0-31.0); Chloride 98 mMol/L (98-107); Creatinine (Component) 1.2 mg/dL (0.6-1.3); Estimated Creatinine Clearance 72.1 mL/min (>60); Globulin 3.9 gm/dL (2.3-3.5); Glucose 302 mg/dL (74-106); Osmolality,Calculated 277 (275-295); Potassium 4.6 mMol/L (3.4-5.1); Procalcitonin 1.33 ng/ml (0.0-0.49); Sodium 133 mMol/L (136-145); Total Protein 8.0 gm/dL (5.7-8.2); eGFR 55 See Note
--- NOTE | 2024-12-21 20:22 | EDNOTE_ITS ---
ED Wound/Laceration-RME/HPI General Chief Complaint: Wound Recheck / Suture Removal Stated Complaint: R/O OSTEOMYELITIS Time Seen by Provider: 12/21/24 16:55 Arrival date/time: 12/21/24 16:31 RME / HPI RME / HPI narrative: 49-year-old female with a history of hyperlipidemia, type 2 diabetes presents to the emergency room with a chief complaint of pain, tenderness to her left lower extremity. Patient was sent over by her primary care provider for an MRI of her left lower extremity to rule out osteomyelitis in the foot. Patient is currently seen by customer training specialist, due to chronic osteomyelitis of the foot. Patient had MRI of the foot last October and was started on antibiotic. Currently patient not taking any antibiotic. Denies any fever. Patient was advised to have an MRI before patient will be seen by another specialist. Related Data Home Medications ?Medication ?Instructions ?Recorded ?Confirmed atorvastatin 40 mg tablet 40 mg PO QDAY 02/03/2111/11 insulin glargine 100 unit/mL (3 40 unit subcut HS 09/1311/12/23 mL) subcutaneous pen (Basaglar KwikPen U-100 Insulin) semaglutide 7 mg tablet (Rybelsus) 7 mg PO QDAY 11/12/23 lisinopril 5 mg tablet 5 mg PO QDAY 11/12/23 Previous Rx's ?Medication ?Instructions ?Recorded blood-glucose sensor (FreeStyle #1 ea 11/14/23 Destiny 3 Sensor device) insulin lispro 100 unit/mL 13 unit (0.13 mL) subcut TI D #15 mL 11/14/23 subcutaneous pen (Admelog SoloStar U-100 Insulin lispro) acetaminophen 300 mg-codeine 30 mg 2 tab PO Q8H PRN pa in #20 tabs 08/21/24 tablet sumatriptan succinate 25 mg tablet 25 mg PO Q2H PRN mi graine headache 08/21/24 (Imitrex) #10 tabs ibuprofen 800 mg tablet 800 mg PO TID PRN pain #30 t abs 08/25/24 sulfamethoxazole 800 1 tab PO BID #14 tabs mg-trimethoprim 160 mg tablet (Bactrim DS) Allergies Allergy/AdvReac Type Severity Reaction Status Date / Time No Known Allergies Allergy Verified 12/21/24 16:35 Review of Systems Review of Systems Narrative Review of Systems: Review of system reviewed and within normal limits except mentioned in HPI ED Exam Narrative Physical exam: VITAL SIGNS: Reviewed. GENERAL APPEARANCE: Alert and interactive, follows commands, no acute distress, HEAD AND FACE: Non-traumatic. ENT: PERRL, pink conjunctivitis, eyelid no trauma, Mucous membrane moist. NECK: Supple, nontender, no nuchal rigidity. CHEST: No tenderness, no crepitus, no paradoxical movement, no retractions. LUNGS: Clear, well ventilated, symmetric, no rales, no wheezing, no ronchi, no stridor, good breath sounds bilaterally. HEART: Regular rate, regular rhythm, no murmur, no gallops. ABDOMEN: Soft, positive bowel sounds, nondistended, no guarding, nontender, no rebound, no masses, RECTAL: Deferred. GENITAL: Deferred. NEUROLOGICAL: Gross motor function intact sensory function intact, Appropriate for age. MUSCULOSKELETAL: low back nontender, full range of motion. EXTREMITIES: Left lower extremity on a hard cast, with no visible skin from knee down to the foot due to the cast no drainage noted on the cast SKIN: Color pink, dry, no rash, no lacerations, no abrasions, no contusions. LYMPHATICS: Deferred. Course Quality Measures none Orders Category Date Time Status MRI Screening NOW Care 12/21/24 17:06 Active MRI Screening NOW Care 12/21/24 17:08 Active MR foot LT wo con Stat Exams 12/21/24 Ordered Blood Culture (Lab) Stat Lab 12/21/24 17:20 Received CBC Stat Lab 12/21/24 17:20 Completed CMP [Comprehensive Metabolic Panel] Stat Lab 12/21/24 17:20 Completed CRP [C-Reactive Protein] Stat Lab 12/21/24 17:20 Completed ESR [Sed Rate (ESR)] Stat Lab 12/21/24 17:20 Completed Lactate (Lactic Acid) Stat Lab 12/21/24 17:20 Completed Procalcitonin Stat Lab 12/21/24 17:20 Completed Trimethoprim/Sulfa 160/800 Ds [Bactrim Ds] Med 12/21/24 20:21 Once 1 tab PO X1 ONE Vital Signs Vital signs: Vital Signs Temperature 99.3 F 12/21/24 16:53 Pulse Rate 108 H 12/21/24 16:53 Respiratory Rate 18 12/21/24 16:53 Blood Pressure 135/83 H 12/21/24 16:53 Pulse Oximetry (%) 97 12/21/24 16:53 Oxygen Delivery Method Room Air 12/21/24 16:53 Wound / Laceration MDM Narrative MDM Narrative:: 49-year-old female with a history of hyperlipidemia, type 2 diabetes presents to the emergency room with a chief complaint of pain, tenderness to her left lower extremity. Patient was sent over by her primary care provider for an MRI of her left lower extremity to rule out osteomyelitis in the foot. Patient is currently seen by customer training specialist, due to chronic osteomyelitis of the foot. Patient had MRI of the foot last October and was started on antibiotic. Currently patient not taking any antibiotic. Denies any fever. Patient was advised to have an MRI before patient will be seen by another specialist. I reviewed patient's previous MRI of the foot last October and showed significant osteomyelitis. Currently the foot cannot be basically visualized due to hard cast. Patient's inflammatory markers is slightly significant with leukocytosis of 13.8 Pro-Ubaldo is 1.3 C-reactive of more than 10. I explained the results and patient is wanting to be started on antibiotic. Patient was given Bactrim in the ED. I told her to see a shotgun shell assembly machine adjuster so that they can remove the cast and can come back to the emergency room for MRI once the cast is out. Patient agrees with the plan. Patient data External records reviewed:: None Clinical information provided by:: patient Social determinants that could affect healthcare access:: none Patient has the following chronic illnesses:: Diabetes mellitus How is presenting disease/condition affected by chronic disease/condition?: exacerbated by Evaluation data The following diagnostics were reviewed and interpreted by me:: lab results Lab and/or radiology exams considered but not ordered:: None Interpretation Summary: See results MDM Medications / Prescriptions Medications or Prescriptions considered but not ordered:: None Medication administrations:: Bactrim Consultations Consultation(s) initiated? (list below): No Diagnosis Wound Differential Diagnosis: other (Chronic foot osteomyelitis left in a cast) Most likely diagnosis given after review of the tests above:: Chronic foot osteomyelitis left in a cast Admission Indicated Admission indicated?: not indicated Admission Request Was there a request for admission?: No Disposition Plan Disposition Plan: Discharge Discharge Attestation Discharge Attestation: The patient was given an opportunity to ask questions and understood the discharge instructions. Discharge instructions specifically effects, indications for sooner follow up or return to the emergency department, and the expected course of current diagnosis. Patient condition: Stable Discharge Plan Plan Patient Disposition: HOME (Self Care) Discharge Disposition comment: stable Prescriptions/Referrals Prescriptions/Med Rec: New sulfamethoxazole-trimethoprim [Bactrim DS] 800-160 mg tablet 1 tab PO BID Qty: 14 0RF No Action atorvastatin 40 mg tablet 40 mg PO QDAY Patient Comments: TAKE 1 TABLET BY MOUTH EVERY DAY lisinopril 5 mg tablet 5 mg PO QDAY Patient Comments: TAKE 1 TABLET BY MOUTH EVERY DAY insulin lispro [Admelog SoloStar U-100 Insulin] 100 unit/mL insulin pen 13 unit SUBCUT TID Qty: 15 3RF Patient Comments: INJECT BY SUBCUTANEOUS ROUTE PER PRESCRIBER'S INSTRUCTIONS. 20 UNITS WITH MEALS 3 TIMES A DAY Rx Instructions: with meals (DME) FreeStyle Destiny 3 Sensor Device See Rx Instructions .Route Qty: 1 0RF Rx Instructions: As directed insulin glargine [Basaglar KwikPen U-100 Insulin] 100 unit/mL (3 mL) insulin pen 40 unit SUBCUT HS Patient Comments: INJECT 50 UNITS BY SUBCUTANEOUS ROUTE EVERY DAY Rybelsus 7 mg tablet 7 mg PO QDAY Patient Comments: PLEASE SEE ATTACHED FOR DETAILED DIRECTIONS sumatriptan succinate [Imitrex] 25 mg tablet 25 mg PO Q2H PRN (Reason: migraine headache) Qty: 10 0RF Rx Instructions: do not exceed 8 doses per 24 hrs acetaminophen-codeine 300-30 mg tablet 2 tab PO Q8H MDD 6 PRN (Reason: pain) Qty: 20 0RF ibuprofen 800 mg tablet 800 mg PO TID PRN (Reason: pain) Qty: 30 0RF Referrals: Javi Woodward MD [Primary Care Provider] - In 1 week Problem List Clinical Impression: Chronic osteomyelitis of foot Patient/Caregiver Discharge Instructions Discharge Activity: activity as tolerated Education Materials: Osteomyelitis Dc Additional Instructions: Thank you for the opportunity for serving you today. You are stable for discharged . You are advised to: Follow-up with your shotgun shell assembly machine adjuster as instructed Return to ED for worsening of symptoms Increase oral fluids Take medication as prescribed Print Language: Uzbek Stand Alone Forms: Elyssa Award Info., Patient Portal Info Letter
[2024-12-21 20:37] VITALS: BP 138/72; PULSE 80; RESP 18; TEMP 37; O2SAT 98
[2024-12-21] MEDS: TRIMETHOPRIM/SULFA 160/800 DS TABLET 1 TAB PO (20:37)
== END 2024-12-21 20:39 | disposition home or self-care (01) ==
PROVIDERS: Nurse Practitioner Family; Emergency Provider Emergency Medicine; PCP Family Medicine
DX: E11.69 Type 2 diabetes mellitus with other specified complication (principal); M86.672 Other chronic osteomyelitis, left ankle and foot; Z79.4 Long term (current) use of insulin; Z79.85 Long-term (current) use of injectable non-insulin antidiabetic drugs
CPT/HCPCS: 36415; 80053; 83605; 84145; 85025; 85652; 86140; 87040; 99283; A9270

== ENCOUNTER 2024-12-24 09:59 | Emergency (ER) | payer MEDICAID, SELFPAY ==
--- NOTE | 2024-12-24 | XR_ITS ---
Examination: MRI left foot, without contrast Date and time of exam: December 24, 2024 1432 hours INDICATIONS: Left foot pain redness and swelling history infection 2 years Technique: Multiple axial sagittal and coronal images of the left foot have been obtained with the Siemens high-resolution 1.5 Jennifer MRI scanner. Images obtained include T2-weighted fat-suppressed sagittal sections, TR 3500, TE 46, T2 weighted coronal fat suppressed images, TR 3050, TE 84, T2-weighted transverse fat suppressed images, TR 3260, TE 63, proton density transverse images, TR 4720 TE 46, and T1 weighted coronal images, TR 560, TE 13. Findings: Severe patient motion markedly degrades scan image quality Extensive cortical bone destruction involving tarsal bones, including distal tibia, talus, calcaneus, cuboid, navicular, medial mid and lateral cuneiforms, bases all metatarsals No fluid-filled drainable soft tissue abscess noted IMPRESSION: Study is severely limited secondary to patient motion Extensive osteomyelitis Consider shorter scan time CT foot without contrast follow-up
[2024-12-24 10:18] VITALS: BP 104/68; PULSE 90; RESP 16; TEMP 37.4; O2SAT 95
--- NOTE | 2024-12-24 10:36 | EDRME_ITS ---
Rapid Medical Screening Exam E Arrival date/time: 12/24/24 09:59 49-year-old female with a history of hyperlipidemia, type 2 diabetes presents to the emergency room with a chief complaint of pain, tenderness to her left lower extremity. Patient was sent over by her primary care provider for an MRI of her left lower extremity to rule out osteomyelitis in the foot. Patient is currently seen by fisheries specialist, due to chronic osteomyelitis of the foot. Patient had MRI of the foot last October and was started on antibiotic. Currently patient not taking any antibiotic. Denies any fever. Patient was seen here on Tuesday but due to having a hard cast on her left foot they were unable to do an MRI. Patient was educated to return whenever she is seen by her paediatric thoracic physician and has her heart cast removed. Today the patient returns with her cast removed and wanting an MRI so she can see another specialist I have greeted and performed a focused initial assessment of this patient. A comprehensive ED assessment and evaluation of the patient, analysis of all test results, and completion of the medical decision making process will be conducted by additional ED providers. Chief Complaint: General Adult/Misc Complain Time Seen by Provider: 12/24/24 10:18 Vital signs: Vital Signs Temperature 99.3 F 12/24/24 10:18 Pulse Rate 90 12/24/24 10:18 Respiratory Rate 16 12/24/24 10:18 Blood Pressure 104/68 12/24/24 10:18 Pulse Oximetry (%) 95 12/24/24 10:18 Oxygen Delivery Method Room Air 12/24/24 10:18 Vital signs reviewed by provider: Yes
[2024-12-24 11:34] LABS: Basophils # (Auto) 0.0 Thou/mm3 (0.0-0.2); Basophils % (Auto) 0 % (0-2.5); Eosinophils # (Auto) 0.2 Thou/mm3 (0.0-0.5); Eosinophils % (Auto) 2 % (0-10); Hematocrit 35.9 % (36.0-46.0); Hemoglobin 11.7 g/dL (12.0-16.0); Immature Granulocytes Auto 0.05 Thou/mm3 (0.00-0.00); Lymphocytes # (Auto) 2.1 Thou/mm3 (1.0-4.8); Lymphocytes % (Auto) 23 % (10-50); Mean Corpuscular HGB Conc 32.6 g/dl (31.0-37.0); Mean Corpuscular Hemoglobin 32.1 pg (25.0-35.0); Mean Corpuscular Volume 98 fL (80-100); Monocytes # (Auto) 0.8 Thou/mm3 (0.0-0.8); Monocytes % (Auto) 9 % (0-12); Neutrophils # (Auto) 5.9 Thou/mm3 (1.8-7.7); Neutrophils % (Auto) 65 % (37-80); Nucleated Red Blood Cell # 0.00 Thou/mm3 (0.00-0.00); Nucleated Red Blood Cell % 0 /100 WBC (0); Platelet Count 335 Thou/mm3 (140-440); RDW Standard Deviation 48.0 fL (36.4-46.3); Red Blood Count 3.65 Miln/mm3 (4.00-5.20); White Blood Count 9.1 Thou/mm3 (3.6-11.0)
[2024-12-24 12:00] LABS: Sed Rate (ESR) 112 mm/hr (0-30)
[2024-12-24 12:17] LABS: Alanine Aminotransferase 21 U/L (10-49); Albumin, Serum 4.1 gm/dL (3.5-5.0); Albumin/Globulin Ratio 1.1 (1.2-2.2); Alkaline Phosphatase 83 U/L (46-116); Anion Gap 8 (7-16); Aspartate Amino Transferase 19 U/L (0-34); BUN/Creatinine Ratio 16 Ratio (12-20); Bilirubin,Total 0.6 mg/dL (0.3-1.2); Blood Urea Nitrogen 22 mg/dL (9-23); C-Reactive Protein 16.5 mg/dL (0.0-0.9); Calcium 9.2 mg/dL (8.3-10.6); Calcium (Corrected) 9.2 mg/dL (8.5-10.1); Carbon Dioxide 23.6 mMol/L (20.0-31.0); Chloride 104 mMol/L (98-107); Creatinine (Component) 1.4 mg/dL (0.6-1.3); Globulin 3.6 gm/dL (2.3-3.5); Glucose 206 mg/dL (74-106); Osmolality,Calculated 281 (275-295); Potassium 4.8 mMol/L (3.4-5.1); Sodium 136 mMol/L (136-145); Total Protein 7.7 gm/dL (5.7-8.2); eGFR 46 See Note
[2024-12-24 15:41] VITALS: BP 118/80; PULSE 86; RESP 20; TEMP 36.7; O2SAT 96
--- NOTE | 2024-12-24 15:53 | PC.NURSE ---
CALLED PT FROM INSIDE AND OUTSIDE TO BE REVITALED. PATIENT DID NOT ANSWER AT THIS TIME.
== END 2024-12-24 16:36 | disposition left against medical advice (07) ==
PROVIDERS: Nurse Practitioner Family; Emergency Provider Family Medicine; PCP Physician Assistant
DX: M86.672 Other chronic osteomyelitis, left ankle and foot (principal); E78.5 Hyperlipidemia, unspecified; E11.9 Type 2 diabetes mellitus without complications; Z53.29 Procedure and treatment not carried out because of patient's decision for other reasons
CPT/HCPCS: 36415; 73718; 80053; 85025; 85652; 86140; 99284

== ENCOUNTER → 2024-12-24 | Outpatient (CLI) | payer MEDICAID, SELFPAY | END | disposition home or self-care (01) | LOC: SWHD 09:30 | PROVIDERS: PCP Physician Assistant; Referring Provider Physician Assistant; Visit Provider Student in an Organized Health Care Education/Training Program | DX: L97.528 Non-pressure chronic ulcer of other part of left foot with other specified severity (principal); M17.0 Bilateral primary osteoarthritis of knee; M19.042 Primary osteoarthritis, left hand; M19.041 Primary osteoarthritis, right hand; F17.200 Nicotine dependence, unspecified, uncomplicated; M25.872 Other specified joint disorders, left ankle and foot; N18.32 Chronic kidney disease, stage 3b | CPT/HCPCS: 99213; G0463 ==

== ENCOUNTER 2024-12-27 13:56 | Inpatient (IN) | payer MEDICAID, SELFPAY ==
[2024-12-27 14:20] VITALS: BP 135/88; PULSE 91; RESP 18; TEMP 36.9; O2SAT 95; BMI 41.9
--- NOTE | 2024-12-27 14:27 | PD.EDWOUND ---
ED Wound/Laceration-RME/HPI General Chief Complaint: Wound/Laceration Stated Complaint: told to come for a PICC line, infection from foot Time Seen by Provider: 12/27/24 14:23 Arrival date/time: 12/27/24 13:56 49-year-old female presents to the emergency department for complaints of infection to the left foot patient is been seeing wound care was referred to the ER for further evaluation possible PICC line and antibiotics patient had MRI here 3 days ago Limitations: no limitations Related Data Home Medications ?Medication ?Instructions ?Recorded ?Confirmed atorvastatin 40 mg tablet 40 mg PO QDAY 02/03/21 11/12/23 insulin glargine 100 unit/mL (3 40 unit subcut HS 09/29/22 11/12/23 mL) subcutaneous pen (Basaglar KwikPen U-100 Insulin) semaglutide 7 mg tablet (Rybelsus) 7 mg PO QDAY 09/29/22 11/12/23 lisinopril 5 mg tablet 5 mg PO QDAY 11/12/23 11/12/23 Previous Rx's ?Medication ?Instructions ?Recorded blood-glucose sensor (FreeStyle #1 ea 11/14/23 Destiny 3 Sensor device) insulin lispro 100 unit/mL 13 unit (0.13 mL) subcut TID #15 mL 11/14/23 subcutaneous pen (Admelog SoloStar U-100 Insulin lispro) acetaminophen 300 mg-codeine 30 mg 2 tab PO Q8H PRN pain #20 tabs 08/21/24 tablet sumatriptan succinate 25 mg tablet 25 mg PO Q2H PRN migraine headache 08/21/24 (Imitrex) #10 tabs ibuprofen 800 mg tablet 800 mg PO TID PRN pain #30 tabs 08/25/24 sulfamethoxazole 800 1 tab PO BID #14 tabs 12/21/24 mg-trimethoprim 160 mg tablet (Bactrim DS) Allergies Allergy/AdvReac Type Severity Reaction Status Date / Time No Known Allergies Allergy Verified 12/27/24 14:01 Review of Systems Review of Systems Systems Reviewed: All systems reviewed, normal except as documented Constitutional Constitutional: Reports system reviewed and no additional complaints, except as documented, Denies fever(s) and Denies headache(s) Eyes Eyes: Reports system reviewed and no additional complaints, except as documented and Denies blurry vision ENT Ears, Nose, Mouth, and Throat: Reports system reviewed and no additional complaints, except as documented, Denies headache(s), Denies nasal congestion and Denies nasal discharge Cardiovascular Cardiovascular: Reports system reviewed and no additional complaints, except as documented, Denies chest pain and Denies dyspnea Respiratory Respiratory: Reports system reviewed and no additional complaints, except as documented, Denies chest congestion, Denies cough and Denies dyspnea Gastrointestinal Gastrointestinal: Reports system reviewed and no additional complaints, except as documented and Denies abdominal pain Musculoskeletal Musculoskeletal: Reports system reviewed and no additional complaints, except as documented and Reports other (Mild erythema swelling left foot) Integumentary/Breasts Skin/Breast: Reports system reviewed and no additional complaints, except as documented, Denies rash and Reports other (Mild erythema swelling left foot) Neurologic Neurologic: Reports system reviewed and no additional complaints, except as documented, Reports as per HPI and Denies headache(s) Past Medical History Past Medical History NEUROLOGIC: Negative Seizures CARDIAC: Positive Hypercholesterolemia and Hypertension; Negative Cardiac Disorders, Congestive Heart Failure or Edema RESPIRATORY: Negative Chronic Obstructive Pulmonary Disease (COPD) or Asthma GASTROINTESTINAL: Positive Gastroesophageal Reflux Disease GENITOURINARY: Negative Renal Disease REPRODUCTIVE: Positive Previous Pregnancies MUSCULOSKELETAL: Positive Arthritis ENT: Positive Deafness ENDOCRINE: Positive Diabetes Mellitus Type 2; Negative Diabetes Mellitus Type 1 HEMATOLOGIC: Negative Sickle Cell Disease OTHER HISTORY: Positive Chicken Pox; Negative Blood Transfusions, Blood Transfusion Reaction, Anesthesia Reactions or Cancer Family History FAMILY HISTORY: Positive Family Cardiac Disorders Surgical History SURGICAL: Positive Tonsillectomy and Abdominal Surgery; Negative Pacemaker Social History SMOKING STATUS: Never smoker SECOND HAND EXPOSURE: No SUBSTANCE USE: does not use ED Exam General Limitations: Present no limitations General appearance: Present alert and in no apparent distress Head Head exam: Present atraumatic Eye Eye exam: Present normal appearance, PERRL and EOMI ENT ENT exam: Present normal exam, normal oropharynx and mucous membranes moist Neck Neck exam: Present normal inspection, full ROM and trachea midline Chest Chest inspection: Present normal inspection and symmetric chest wall rise Respiratory Respiratory exam: Present normal lung sounds bilaterally Cardiovascular Cardiovascular exam: Present regular rate, normal rhythm and normal heart sounds Abdominal Exam Abdominal exam: Present soft and normal bowel sounds Extremities Exam Extremities exam: Present normal inspection and full ROM Back Exam Back exam: Present normal inspection and full ROM Neurological Exam Neurological exam: Present alert, oriented X3, CN II-XII intact, normal gait and reflexes normal; Absent motor sensory deficit Psychiatric Psychiatric exam: Present normal affect and normal mood Skin Skin exam: Present warm, dry, intact and normal color Course Quality Measures none Orders Category Date Time Status COVID-19 Screening Questionnaire NOW Care 12/27/24 14:27 Active Decision to Admit X1 Care 12/27/24 14:26 Active Insert IV NOW Care 12/27/24 14:26 Active Consult to General Surgery Stat Cons 12/27/24 14:26 Ordered Blood Culture (Lab) Stat Lab 12/27/24 14:26 Ordered CBC Stat Lab 12/27/24 14:26 Ordered CMP [Comprehensive Metabolic Panel] Stat Lab 12/27/24 14:26 Ordered CRP [C-Reactive Protein] Stat Lab 12/27/24 14:26 Ordered ESR [Sed Rate (ESR)] Stat Lab 12/27/24 14:26 Ordered Lactic Acid [Lactate (Lactic Acid)] Stat Lab 12/27/24 14:26 Ordered PT [Prothrombin Time with INR] Stat Lab 12/27/24 14:26 Ordered Procalcitonin Stat Lab 12/27/24 14:26 Ordered Vital Signs Vital signs: Vital Signs Temperature 98.5 F 12/27/24 14:20 Pulse Rate 91 12/27/24 14:20 Respiratory Rate 18 12/27/24 14:20 Blood Pressure 135/88 H 12/27/24 14:20 Pulse Oximetry (%) 95 12/27/24 14:20 Oxygen Delivery Method Room Air 12/27/24 14:20 O2 saturation 95% room air with normal limits Wound / Laceration MDM Narrative MDM Narrative:: 49-year-old female presents to the emergency department for complaints of infection to the left foot patient is been seeing wound care was referred to the ER for further evaluation possible PICC line and antibiotics patient had MRI 3 days ago On exam patient does not appear ill or toxic no acute distress On exam patient has significant swelling of the left foot and positive for osteomyelitis on MRI 3 days ago Consultation: I spoke with Dr. De La Garza who is willing to consult for this patient I spoke with admission physician Dr. Blunt who agrees to admit the patient Lab work initiated patient admitted in no distress Patient data External records reviewed:: [facility] previous records Clinical information provided by:: patient Social determinants that could affect healthcare access:: none Patient has the following chronic illnesses:: See history How is presenting disease/condition affected by chronic disease/condition?: caused by Evaluation data The following diagnostics were reviewed and interpreted by me:: lab results and radiology exam(s) Lab and/or radiology exams considered but not ordered:: Labs radiology obtained Interpretation Summary: Reviewed by me Medications / Prescriptions Medications or Prescriptions considered but not ordered:: Given Medication administrations:: Given Consultations Consultation(s) initiated? (list below): No Diagnosis Wound Differential Diagnosis: abscess and other (Osteomyelitis left foot) Most likely diagnosis given after review of the tests above:: Osteomyelitis Admission Indicated Admission indicated?: not indicated Admission Request Was there a request for admission?: Yes Admission Attestation Admission request attestation: Discussed case with [] from Hospitalist service regarding admission. Discussed patients ED course, exam findings, labs, and radiology results. The Hospitalist [agrees,declines] to accept the patient for admission. Disposition Plan Disposition Plan: Admit Discharge Plan Plan Patient Disposition: Admit Acute Care w/in Hospital Discharge Disposition comment: Stable Prescriptions/Referrals Prescriptions/Med Rec: No Action atorvastatin 40 mg tablet 40 mg PO QDAY Patient Comments: TAKE 1 TABLET BY MOUTH EVERY DAY lisinopril 5 mg tablet 5 mg PO QDAY Patient Comments: TAKE 1 TABLET BY MOUTH EVERY DAY insulin lispro [Admelog SoloStar U-100 Insulin] 100 unit/mL insulin pen 13 unit SUBCUT TID Qty: 15 3RF Patient Comments: INJECT BY SUBCUTANEOUS ROUTE PER PRESCRIBER'S INSTRUCTIONS. 20 UNITS WITH MEALS 3 TIMES A DAY Rx Instructions: with meals (DME) FreeStyle Destiny 3 Sensor Device See Rx Instructions .Route Qty: 1 0RF Rx Instructions: As directed sulfamethoxazole-trimethoprim [Bactrim DS] 800-160 mg tablet 1 tab PO BID Qty: 14 0RF insulin glargine [Basaglar KwikPen U-100 Insulin] 100 unit/mL (3 mL) insulin pen 40 unit SUBCUT HS Patient Comments: INJECT 50 UNITS BY SUBCUTANEOUS ROUTE EVERY DAY Rybelsus 7 mg tablet 7 mg PO QDAY Patient Comments: PLEASE SEE ATTACHED FOR DETAILED DIRECTIONS sumatriptan succinate [Imitrex] 25 mg tablet 25 mg PO Q2H PRN (Reason: migraine headache) Qty: 10 0RF Rx Instructions: do not exceed 8 doses per 24 hrs acetaminophen-codeine 300-30 mg tablet 2 tab PO Q8H MDD 6 PRN (Reason: pain) Qty: 20 0RF ibuprofen 800 mg tablet 800 mg PO TID PRN (Reason: pain) Qty: 30 0RF Problem List Clinical Impression: Acute osteomyelitis of left foot, Foot pain, left Patient/Caregiver Discharge Instructions Education Materials: ED RICE Print Language: Ghanaian Stand Alone Forms: Elyssa Award Info., Patient Portal Info Letter PA/MATERIAL CONTROL SUPERVISOR Supervising Physician PA/MATERIAL CONTROL SUPERVISOR Supervising Physician: Dr. vo
--- NOTE | 2024-12-27 15:16 | ESHP_ITS ---
<Statement entered by Jose Wiseman MD - 12/27/24 17:10> Patient was examined and case was reviewed with team including attending physician. Note reviewed, I agree with most of its contents and agree with the patient's care as documented by Dr. Koenig This is a 49-year-old female with past medical history of hypertension, insulin- dependent diabetes, hyperlipidemia who presented to the ED from the wound care clinic for evaluation of left foot infection. Apparently the patient has had multiple ulcers on the same foot. Last year she was hospitalized for osteomyelitis and was discharged with a PICC line and IV antibiotic therapy. Recently her her foot was placed in a cast which was removed on Tuesday after which she noticed increasing edema of the same extremity. Patient denies any fever, chills or pain on this extremity. Patient had imaging done which showed extensive osteomyelitis which seem to have worsened compared to prior MRI studies. Patient will be admitted for acute on chronic osteomyelitis. Patient was started on IV antibiotics and consulted infectious disease specialist. General surgery also consulted to see if the limb is salvageable. Case discussed with my attending Dr. Jose Raul Wiseman MD PGY-2 Disclaimer: Despite multiple revisions, due to the dictation software being used, the document bellow may not be free of grammatical errors including phonetic/typographic errors. However, this does not deter from our commitment to providing health care in the patient's best interest in mind. Documentation for date of: 12/27/24 HPI History of Present Illness Chief complaint: Left foot infection History of present illness: This is a 49 y.o female with past medical history of HLD, T2DM, HTN who presents from wound care clinic to the emergency department for evaluation of left foot infection. Patient states that she has had this infection for couple of years which started as multiple ulcers on the lateral side of her foot. Patient was hospitalized last year for osteomyelitis of the left foot which was treated with IV antibiotics. Patient states that her left foot was placed in a cast and was removed on Tuesday. Since then, she has noticed increasing edema of the left foot. Patient denies any pain but reports numbness in her left foot. Patient has seen launch manager for her foot in the past. In regards to her diabetes management, she states that her last A1C was 7.5. Patient denies any visual changes or kidney problems. Patient denies any fever, chills, shortness of breath, chest pain, nausea, vomiting, or diarrhea. PMH: HLD, T2DM, HTN, chronic diabetic foot ulcer Meds: Atorvastatin, Insulin glargine, semaglutide, lisinopril, mounjaro PSH: denies Allergies: NKDA SH:denies tobacco, alcohol or drug use Exam Vital Signs Temp Pulse Resp BP Pulse Ox O2 Del Method 98.5 F 91 18 135/88 H 95 Room Air 12/27/24 14:20 12/27/24 14:20 12/27/24 14:20 12/27/24 14:20 12/27/24 14:20 12/27/24 14:20 Narrative Exam Gen: Well-developed and well-nourished. Laying comfortably on bed. HEENT: NCAT, EOMI, MMM, anicteric conjunctivae. CVS: normal S1 and S2. RRR. No M/R/G. Resp: CTA B/L. No rhonchi, rales, crackles or wheezing. Ext:warm and well perfused Neuro: Cranial nerve II to XII grossly intact. Bilateral upper extremity 5/5. Bilateral lower extremity 5/5. normal sensation to both upper and lower limbs bilaterally. GCS 15 Skin: left lower extremity appears warm to touch Abdomen: Abdomen is nondistended with no tenderness to palpation. No guarding, rigidity or peritinic sign. MSK: Left foot appears edematous and erythematous. There is a large soft compressible approximately 10cm mass on the lateral side of left foot with no discharge or oozing which is nontender to palpation. Psych: appropriate mood and affect. Results: Labs 12/27/24 15:09 12/27/24 15:09 Quality Measures Quality Measures none Medications Home Medications and Allergies Home Medications ?Medication ?Instructions ?Recorded ?Confirmed ?Type atorvastatin 40 mg tablet 40 mg PO QDAY 02/03/2111/11 History insulin glargine 100 unit/mL (3 40 unit subcut HS 09/1311/12/23 History mL) subcutaneous pen (Basaglar KwikPen U-100 Insulin) semaglutide 7 mg tablet (Rybelsus) 7 mg PO QDAY 11/12/23 History lisinopril 5 mg tablet 5 mg PO QDAY 11/12/23 History Allergies Allergy/AdvReac Type Severity Reaction Status Date / Time No Known Allergies Allergy Verified 12/27/24 14:01 Assessment & Plan Plan 49F with PMH of HLD, T2DM, HTN, and chronic left foot diabetic ulcer presents from wound care clinic for evaluation of left foot infection. Patient was hospitalized last year for osteomyelitis of the left foot which was treated with IV Abx. Patient has noticed increasing edema of the left foot since Tuesday. Patient denies any pain but reports numbness in her left foot. management, she states that her last A1C was 7.5. Patient denies any fever, chills, shortness of breath, chest pain, nausea, vomiting, or diarrhea. #Left foot osteomyelitis Patient has had 1x episode of left foot osteomyeliutis last year treated with IV Abx. This is most likely secondary to chronic uncontrolled diabetes and nonhealing pressure ulcers which have developed over time on the lateral aspect of the left foot. Patient is afebrile with stable VSS. On exam, LLE appears warm to touch, left foot is edematous and erythematous. There is a large soft compressible approximately 10cm mass on the lateral side of left foot with no discharge or oozing which is nontender to palpation. No leukocytosis. Recent left foot MRI shows extensive osteomyelitis. Extensive cortical bone destruction involving tarsal bones, including distal tibia, talus, calcaneus, cuboid, navicular, medial mid and lateral cuneiforms, bases all metatarsals noted. No fluid-filled drainable soft tissue abscess noted Plan: - Admit to Med-Surg - Consulted surgery, Dr. De La Garza, appreciate recs - Consulted Infectious disease, Dr. Barboza, appreciate recs - Referral placed for wound care - Start Vancomycin (started on 12/27/24) - Start Zosyn (Started on 12/27/24) - Pending blood culture - Start IVF maintanence at 75 - prn Ibuprofen, tylenol and morphine for pain #T2DM Uncontrolled. Last A1C per patient was 7.5%. Plan: - SSI - Hypoglycemia protocol in place #HLD Chronic. Managed with atorvastatin Plan: - Continue home atorvastatin #HTN Chronic Plan: -pending CMP to check for kidney function to restart home lisinopril Dispo: Admit to med surg DVT prophylaxis: SCDs GI prophylaxis: None Bowel reg: none Diet: low cons carb (NPO at midnight) Pain mgmt: prn Tylenol, Ibuprofen prn morphine 2 mg IV q4h Lines: peripheral Code status: Full code Plan discussed with Dr. Fletcher and Dr. Jose Raul Koenig DO PGY1 Attending Provider Attestation/Addendum I have examined the patient, reviewed labs and imaging findings, discussed the case with the resident(s), and reviewed entered orders. I agree with the plan of care as outlined in this note, with these additional summaries/recommendations: After examination of the patient and review of the clinical data I feel that this patient needs admission to the hospital for further treatment/evaluation. Patient is a 49-year-old female with a medical history of insulin-dependent diabetes melitis type II, dyslipidemia, migraine headaches, primary hypertension, and diabetic ulcer/osteo of left foot presents to [facility] emergency department on 12/27/2024 from wound care center for osteomyelitis. Patient seen at bedside. She reports she completed an MRI of her left foot on 12/24/2024. She was evaluated at wound clinic today and advised to come to the ER for worsening osteomyelitis. Patient appears to have acute on chronic osteomyelitis. MRI shows diffuse osteomyelitis with extensive cortical bone destruction involving tarsal bones, distal tibia, talus, calcaneus, cuboid, navicular, medial mid and lateral cuneiforms, and all bases of metatarsals. Osteomyelitis appears worsened compared to prior MRI. Patient will be admitted for osteomyelitis/cellulitis. General surgery was consulted from the emergency room and appreciate recommendations. Patient would like to avoid amputation although discussed that she should be evaluated by general surgeon before making a decision. ESR 112 and CRP greater than 16. Start IV antibiotics. Blood cultures taken and follow-up results when available. We will consult infectious disease for recommendations. Suspect an additional extended course of IV antibiotics is unlikely to cure patient's osteomyelitis although appreciate ID recs. Start basal and bolus insulin for diabetes mellitus type 2. Previous A1c on file 11.1% and order repeat A1c. Ultimately patient needs tight glycemic control to promote wound healing although we will target a blood sugar of 140- 180 while hospitalized. Continue home antihypertensives and cholesterol medicine pending medication reconciliation. Patient updated on the plan and in agreement. All questions answered to satisfaction. Please see residents note for additional details and management. Dr. Jose Raul MD
[2024-12-27 15:17] LABS: Basophils # (Auto) 0.1 Thou/mm3 (0.0-0.2); Basophils % (Auto) 1 % (0-2.5); Eosinophils # (Auto) 0.3 Thou/mm3 (0.0-0.5); Eosinophils % (Auto) 3 % (0-10); Hematocrit 36.8 % (36.0-46.0); Hemoglobin 11.9 g/dL (12.0-16.0); Immature Granulocytes Auto 0.04 Thou/mm3 (0.00-0.00); Lactate (Lactic Acid) 1.1 mMol/L (0.4-2.0); Lymphocytes # (Auto) 2.7 Thou/mm3 (1.0-4.8); Lymphocytes % (Auto) 30 % (10-50); Mean Corpuscular HGB Conc 32.3 g/dl (31.0-37.0); Mean Corpuscular Hemoglobin 31.9 pg (25.0-35.0); Mean Corpuscular Volume 99 fL (80-100); Monocytes # (Auto) 0.6 Thou/mm3 (0.0-0.8); Monocytes % (Auto) 7 % (0-12); Neutrophils # (Auto) 5.1 Thou/mm3 (1.8-7.7); Neutrophils % (Auto) 58 % (37-80); Nucleated Red Blood Cell # 0.00 Thou/mm3 (0.00-0.00); Nucleated Red Blood Cell % 0 /100 WBC (0); Platelet Count 496 Thou/mm3 (140-440); RDW Standard Deviation 46.9 fL (36.4-46.3); Red Blood Count 3.73 Miln/mm3 (4.00-5.20); White Blood Count 8.8 Thou/mm3 (3.6-11.0)
[2024-12-27 15:30] LABS: INR 1.0 (0.9-1.3); Prothrombin Time 11.1 Seconds (9.0-12.2)
[2024-12-27 15:40] LABS: Sed Rate (ESR) 112 mm/hr (0-30)
[2024-12-27 16:20] VITALS: O2SAT 98
[2024-12-27] MEDS: SODIUM CHLORIDE 0.9% 1000 ML 1,000 ML 75 ML IV (16:38)
[2024-12-27] MEDS: PIPER/TAZO 3.375 GM PREMIX 3.375 GM/50 ML BAG IV ×2 (16:42→21:47)
[2024-12-27 16:59] LABS: Alanine Aminotransferase 17 U/L (10-49); Albumin, Serum 4.1 gm/dL (3.5-5.0); Albumin/Globulin Ratio 1.0 (1.2-2.2); Alkaline Phosphatase 78 U/L (46-116); Anion Gap 11 (7-16); Aspartate Amino Transferase 28 U/L (0-34); BUN/Creatinine Ratio 13 Ratio (12-20); Bilirubin,Total 0.3 mg/dL (0.3-1.2); Blood Urea Nitrogen 14 mg/dL (9-23); Calcium 9.4 mg/dL (8.3-10.6); Calcium (Corrected) 9.4 mg/dL (8.5-10.1); Carbon Dioxide 20.2 mMol/L (20.0-31.0); Chloride 107 mMol/L (98-107); Creatinine (Component) 1.1 mg/dL (0.6-1.3); Estimated Creatinine Clearance 79.0 mL/min (>60); Globulin 4.1 gm/dL (2.3-3.5); Glucose 169 mg/dL (74-106); Osmolality,Calculated 280 (275-295); Potassium 4.7 mMol/L (3.4-5.1); Procalcitonin 0.11 ng/ml (0.0-0.49); Sodium 138 mMol/L (136-145); Total Protein 8.2 gm/dL (5.7-8.2); eGFR > 60 See Note
[2024-12-27 17:32] VITALS: BP 126/82; PULSE 87; RESP 16; TEMP 36.6; O2SAT 96
[2024-12-27 18:05] LABS: C-Reactive Protein 4.9 mg/dL (0.0-0.9)
[2024-12-27 19:23] VITALS: BMI 41.1
[2024-12-27 20:00] VITALS: BP 118/70; PULSE 82; RESP 18; TEMP 36.1; O2SAT 97
[2024-12-28] VITALS (7 sets, daily range): BP systolic 114–134; BP diastolic 69–79; PULSE 80–100; RESP 16–96; TEMP 36.1–36.3; O2SAT 95–97
[2024-12-28] MEDS: SODIUM CHLORIDE 0.9% 1000 ML 1,000 ML 75 ML IV ×2 (05:13→21:07)
[2024-12-28] MEDS: PIPER/TAZO 3.375 GM PREMIX 3.375 GM/50 ML BAG IV ×3 (05:13→21:07)
[2024-12-28 06:06] LABS: INR 1.0 (0.9-1.3); Partial Thromboplastin Time 25.6 Seconds (22.0-36.0); Prothrombin Time 11.0 Seconds (9.0-12.2)
[2024-12-28 06:13] LABS: Basophils # (Auto) 0.0 Thou/mm3 (0.0-0.2); Basophils % (Auto) 1 % (0-2.5); Eosinophils # (Auto) 0.3 Thou/mm3 (0.0-0.5); Eosinophils % (Auto) 5 % (0-10); Hematocrit 35.5 % (36.0-46.0); Hemoglobin 11.4 g/dL (12.0-16.0); Immature Granulocytes Auto 0.03 Thou/mm3 (0.00-0.00); Lymphocytes # (Auto) 2.5 Thou/mm3 (1.0-4.8); Lymphocytes % (Auto) 36 % (10-50); Mean Corpuscular HGB Conc 32.1 g/dl (31.0-37.0); Mean Corpuscular Hemoglobin 31.8 pg (25.0-35.0); Mean Corpuscular Volume 99 fL (80-100); Monocytes # (Auto) 0.6 Thou/mm3 (0.0-0.8); Monocytes % (Auto) 8 % (0-12); Neutrophils # (Auto) 3.5 Thou/mm3 (1.8-7.7); Neutrophils % (Auto) 50 % (37-80); Nucleated Red Blood Cell # 0.00 Thou/mm3 (0.00-0.00); Nucleated Red Blood Cell % 0 /100 WBC (0); Platelet Count 507 Thou/mm3 (140-440); RDW Standard Deviation 46.7 fL (36.4-46.3); Red Blood Count 3.59 Miln/mm3 (4.00-5.20); White Blood Count 7.0 Thou/mm3 (3.6-11.0)
[2024-12-28 06:50] LABS: Alanine Aminotransferase 17 U/L (10-49); Albumin, Serum 3.4 gm/dL (3.5-5.0); Albumin/Globulin Ratio 1.0 (1.2-2.2); Alkaline Phosphatase 74 U/L (46-116); Anion Gap 9 (7-16); Aspartate Amino Transferase 21 U/L (0-34); BUN/Creatinine Ratio 21 Ratio (12-20); Bilirubin,Total 0.3 mg/dL (0.3-1.2); Blood Urea Nitrogen 19 mg/dL (9-23); Calcium 8.7 mg/dL (8.3-10.6); Calcium (Corrected) 9.2 mg/dL (8.5-10.1); Carbon Dioxide 21.6 mMol/L (20.0-31.0); Chloride 106 mMol/L (98-107); Creatinine (Component) 0.9 mg/dL (0.6-1.3); Estimated Creatinine Clearance 98.8 mL/min (>60); Globulin 3.5 gm/dL (2.3-3.5); Glucose 193 mg/dL (74-106); Magnesium 2.1 mg/dL (1.6-2.6); Osmolality,Calculated 281 (275-295); Phosphorous 4.1 mg/dL (2.4-5.1); Potassium 4.8 mMol/L (3.4-5.1); Sodium 137 mMol/L (136-145); Total Protein 6.9 gm/dL (5.7-8.2); eGFR > 60 See Note
[2024-12-28 07:08] LABS: Glucose Estimated Average 189 mg/dL (80-131); Hemoglobin A1C 8.2 % Hgb (4.8-6.0)
--- NOTE | 2024-12-28 07:45 | PD.SURCONS ---
HPI Consult details Consult date: 12/28/24 Reason for consultation narrative: Left foot osteomyelitis History of present illness: 49-year-old female with history of diabetes, hypertension and hyperlipidemia has had chronic osteomyelitis of left foot with Charcot joint deformity. She has had PICC line and treated with IV antibiotic last year. She states that she has noted increased swelling and edema of left foot. MRI revealed extensive osteomyelitis of majority of the bone of the left foot. Review of Systems Constitutional Constitutional: Denies headache(s) ENT Ears, Nose, Mouth, and Throat: Denies headache(s) Cardiovascular Cardiovascular: Denies chest pain Respiratory Respiratory: Denies cough Gastrointestinal Gastrointestinal: Denies abdominal pain, Denies nausea and Denies vomiting Neurologic Neurologic: Denies headache(s) Hematologic/Lymphatic Hematologic/Lymphatic: Denies easy bleeding and Denies easy bruising Past Medical History Surgical History OTHER SURGICAL HX: Appendectomy, tonsillectomy Social History SMOKING STATUS: Never smoker SUBSTANCE USE: does not use ALCOHOL: Never Meds Home Medications and Allergies Home Medications ?Medication ?Instructions ?Recorded ?Confirmed ?Type insulin glargine 100 unit/mL (3 50 unit subcut HS 09/29/22 12/27/24 History mL) subcutaneous pen (Basaglar KwikPen U-100 Insulin) lisinopril 5 mg tablet 5 mg PO QDAY 11/12/23 12/27/24 History ergocalciferol (vitamin D2) 1,250 1,250 mcg PO DAILY 12/27/24 12/27/24 History mcg (50,000 unit) capsule evolocumab 140 mg/mL subcutaneous 140 mg subcut .[id number] 12/27/24 12/27/24 History pen injector (Repatha SureClick) insulin lispro 100 unit/mL 20 unit subcut AC 12/27/24 12/27/24 History subcutaneous pen (Admelog SoloStar U-100 Insulin lispro) pantoprazole 40 mg tablet,delayed 40 mg PO DAILY 12/27/24 12/27/24 History release tirzepatide 5 mg/0.5 mL 5 mg subcut QWEEK 12/27/24 12/27/24 History subcutaneous pen injector (Mounjaro) Allergies Allergy/AdvReac Type Severity Reaction Status Date / Time No Known Allergies Allergy Verified 12/27/24 14:01 Exam Vital Signs Temp Pulse Resp BP Pulse Ox O2 Del Method 97.0 F 100 18 134/74 H 97 Room Air 12/28/24 04:00 12/28/24 04:00 12/28/24 04:00 12/28/24 04:00 12/28/24 04:00 12/28/24 04:00 Constitutional Constitutional: no acute distress Routine Extremities Exam Comments: Edema of left foot with Charcot deformity Assessment & Plan Problem List (1) Acute osteomyelitis of left foot: Status: Acute Plan Patient had extensive osteomyelitis with large Charcot deformity. I can only offer the patient a [id number] amputation. She has had IV antibiotic treatment in the past without any improvements and she wishes to proceed with another course of IV antibiotic treatment that I think would be futile. She does not wish to proceed with surgical intervention at this time. Thank you for the consultation and I will sign off.
[2024-12-28] MEDS: INSULIN LISPRO (AdmeLOG) 1 UNIT/0.01 ML UNIT SC ×4 (07:48→21:06)
[2024-12-28] MEDS: VANCOMYCIN/WATER 1250 MG IVPB 250 ML 120 MG IV ×2 (07:49→22:04)
--- NOTE | 2024-12-28 08:05 | ESPR_ITS ---
<Statement entered by Jose Wiseman MD - 12/28/24 22:45> Patient was examined and case was reviewed with team including attending physician. Note reviewed, I agree with most of its contents and agree with the patient's care as documented by Dr. Koenig Patient seen today at the bedside found awake, alert, orientedx3. No overnight events reported. Vitals and labs reviewed. General surgery evaluated the patient however patient is very adamant that surgery would not be an option as she does not want to have below the knee amputation therefore general surgery signed off from the case. Patient will continue IV antibiotics at this time. Infectious disease specialist was consulted will appreciate his recommendations as patient has already had PICC line placed with IV antibiotics. But continues to have osteomyelitis. Case discussed with my attending Dr. Nellie Wiseman MD PGY-2 Disclaimer: Despite multiple revisions, due to the dictation software being used, the document bellow may not be free of grammatical errors including phonetic/typographic errors. However, this does not deter from our commitment to providing health care in the patient's best interest in mind. Documentation for date of: 12/28/24 Subjective Subjective Interval history: 12/28/24: NAEO. Vital signs remain stable. Patient was evaluated by General Surgery, however since patient does not wish to proceed with surgery, the surgery team signed off. Patient would like to be treated with IV antibiotics at this time. Patient denies any subjective fever, nausea, vomiting, abdominal pain, or pain in her left leg and foot. Exam Vital Signs Temp Pulse Resp BP Pulse Ox O2 Del Method 97.0 F 84 18 134/74 H 97 Room Air 12/28/24 04:00 12/28/24 08:04 12/28/24 08:04 12/28/24 04:00 12/28/24 04:00 12/28/24 04:00 Narrative Exam Gen: Well-developed and well-nourished. Laying comfortably on bed. HEENT: NCAT, EOMI, MMM, anicteric conjunctivae. CVS: normal S1 and S2. RRR. No M/R/G. Resp: CTA B/L. No rhonchi, rales, crackles or wheezing. Ext:warm and well perfused Neuro: Cranial nerve II to XII grossly intact. Bilateral upper extremity 5/5. Bilateral lower extremity 5/5. normal sensation to both upper and lower limbs bilaterally. GCS 15 Skin: left lower extremity appears warm to touch Abdomen: Abdomen is nondistended with no tenderness to palpation. No guarding, rigidity or peritinic sign. MSK: Left foot appears edematous and erythematous with charcot deformity. There is a large soft compressible approximately 10cm mass on the lateral side of left foot with no discharge or oozing which is nontender to palpation. Psych: appropriate mood and affect. Objective Labs 12/29/24 05:32 12/29/24 05:32 Labs: Laboratory Results - last 24 hr 12/27/24 12/28/24 15:09 05:20 WBC 8.8 7.0 RBC 3.73 L 3.59 L Hgb 11.9 L 11.4 L Hct 36.8 35.5 L MCV 99 99 MCH 31.9 31.8 MCHC 32.3 32.1 RDW Std Deviation 46.9 H 46.7 H Plt Count 496 H D 507 H Neut % (Auto) 58 50 Lymph % (Auto) 30 36 [place] % (Auto) 7 8 Eos % (Auto) 3 5 Baso % (Auto) 1 1 Neut # (Auto) 5.1 3.5 Lymph # (Auto) 2.7 2.5 [place] # (Auto) 0.6 0.6 Eos # (Auto) 0.3 0.3 Baso # (Auto) 0.1 0.0 Immature Gran # (Auto) 0.04 H 0.03 H Absolute Nucleated RBC 0.00 0.00 Immature Gran % 1 H 0 Nucleated RBC % 0 0 ESR 112 H PT 11.1 11.0 INR 1.0 1.0 APTT 25.6 Sodium 138 137 Potassium 4.7 4.8 Chloride 107 106 Carbon Dioxide 20.2 21.6 Anion Gap 11 9 BUN 14 19 Creatinine 1.1 0.9 Estim Creat Clear Calc 79.0 98.8 eGFR > 60 > 60 BUN/Creatinine Ratio 13 21 H Glucose [address] Glu mg/dL 189 H Hemoglobin A1c 8.2 H Calculated Osmolality 280 281 Lactic Acid 1.1 Calcium 9.4 8.7 Corrected Calcium 9.4 9.2 Phosphorus 4.1 Magnesium 2.1 Total Bilirubin 0.3 0.3 AST 28 21 ALT 17 17 Alkaline Phosphatase 78 74 C-Reactive Prot, Quant 4.9 H Total Protein 8.2 6.9 Albumin 4.1 3.4 L D Globulin 4.1 H 3.5 Albumin/Globulin Ratio 1.0 L 1.0 L Procalcitonin 0.11 Quality Measures Quality Measures none Assessment & Plan Assessment Current Active Medications: Generic Name Dose Route Start Last Admin Trade Name Freq PRN Reason Stop Dose Admin Acetaminophen 650 mg 12/27/24 15:06 Acetaminophen 325 Mg Tablet PO 01/26/25 15:05 Q6H PRN Fever >101.5 Dextrose 25 ml 12/27/24 15:52 Dextrose 50%-Water Inj 50 Ml Syringe IV 01/26/25 15:51 Q15MIN PRN BG 50-70 responsive npo pt Dextrose 50 ml 12/27/24 15:52 Dextrose 50%-Water Inj 50 Ml Syringe IV 01/26/25 15:51 Q15MIN PRN BG <50 OR BG <70 & pt unresponsive Glucagon 1 mg 12/27/24 15:52 Glucagon Inj 1 Mg Vial IM Q15MIN PRN BG <70, and no IV access Sodium Chloride 1,000 mls @ 75 mls/hr 12/27/24 15:15 12/28/24 05:13 Ns IV 01/26/25 15:14 75 mls/hr .[id number] YESSICA Administration Piperacillin/Tazobactam/Dextrose 3.375 gm in 50 mls @ 100 mls/hr 12/27/24 15:15 12/28/24 05:13 Zosyn IV 01/03/25 15:14 100 mls/hr Q8HR YESSICA Administration Vancomycin HCl 250 mls @ 120 mls/hr 12/28/24 22:00 Vancomycin/Water 1250 Mg Ivpb IV 01/04/25 21:59 Q12H YESSICA Protocol Vancomycin HCl 250 mls @ 120 mls/hr 12/28/24 08:00 12/28/24 07:49 Vancomycin/Water 1250 Mg Ivpb IV 12/28/24 10:04 120 mls/hr X1 ONE Administration Ibuprofen 600 mg 12/27/24 15:06 Ibuprofen Tab 600 Mg Tablet PO 01/26/25 15:05 Q6H PRN PAIN SCALE 1-3 (mild Insulin Human Lispro 0 unit 12/27/24 17:00 12/28/24 07:48 Insulin Lispro (Admelog) 1 Unit/0.01 Ml Unit SC 01/26/25 16:59 3 unit AC YESSICA Administration Protocol Morphine Sulfate 2 mg 12/27/24 15:11 Morphine Sulf Inj 10 Mg/Ml Vial IVP 01/01/25 15:10 Q4HR PRN PAIN SCALE 7-10 (Severe Ondansetron HCl 4 mg 12/27/24 15:06 Ondansetron Inj 2 Mg/Ml Inj 2 Ml IVP 01/26/25 15:05 Q6H PRN NAUSEA OR VOMITING Protocol Pharmacy Consult 1 each 12/28/24 09:00 Vancomycin Pharmacy To Dose 1 Each Each IV 01/27/25 08:59 QDAY PRN PROTOCOL Plan 49F with PMH of HLD, T2DM, HTN, and chronic left foot diabetic ulcer presents from wound care clinic for evaluation of left foot infection. Patient was hospitalized last year for osteomyelitis of the left foot which was treated with IV Abx. Patient has noticed increasing edema of the left foot since Tuesday. Patient denies any pain but reports numbness in her left foot. management, she states that her last A1C was 7.5. Patient denies any fever, chills, shortness of breath, chest pain, nausea, vomiting, or diarrhea. #Left foot osteomyelitis Patient has had 1x episode of left foot osteomyeliutis last year treated with IV Abx. This is most likely secondary to chronic uncontrolled diabetes and nonhealing pressure ulcers which have developed over time on the lateral aspect of the left foot. Patient is afebrile with stable VSS. On exam, LLE appears warm to touch, left foot is edematous and erythematous with charcot deformity. There is a large soft compressible approximately 10cm mass on the lateral side of left foot with no discharge or oozing which is nontender to palpation. No leukocytosis, remains afebrile with stable vital signs. Recent left foot MRI shows extensive osteomyelitis with extensive cortical bone destruction involving tarsal bones, including distal tibia, talus, calcaneus, cuboid, navicular, medial mid and lateral cuneiforms, bases all metatarsals noted. No fluid-filled drainable soft tissue abscess noted Patient denies recommended below knee amputation plan that was recommended by Dr De La Garza, General Surgery. Patient has been insisting on IV antibiotic treatment. Plan: - Consulted Infectious disease, Dr. Barboza, appreciate recs - PICC line to be ordered on Tuesday morning - Ordered aterial Duplex US of LLE to assess for circulation status of the left lower extremity - Referral placed for wound care - Continue Vancomycin (started on 12/27/24) - Continue Zosyn (Started on 12/27/24) - Pending blood culture - Continue IVF maintanence at 75 - prn Ibuprofen, tylenol and morphine for pain #T2DM Uncontrolled. Last A1C per patient was 7.5%. Plan: - SSI - Hypoglycemia protocol in place #HLD Chronic. Managed with atorvastatin Plan: - Continue home atorvastatin #HTN Chronic Plan: Cr of 0.9. - Continue home lisinopril #GERD Chronic Plan: -Continue home Protonix Dispo: Admit to med surg DVT prophylaxis: SCDs GI prophylaxis: None Bowel reg: none Diet: low cons carb Pain mgmt: prn Tylenol, Ibuprofen prn morphine 2 mg IV q4h Lines: peripheral Code status: Full code Plan discussed with Dr. Fletcher and Dr. Nellie Koenig DO PGY1 Attending Provider Attestation/Addendum Nancy Ascencio DO, attest that I was physically present for the bolanos portions of the service and evaluated the patient with the resident and I reviewed and discussed the case with the resident and agree with the resident's findings and plans of care as documented above Patient seen and evaluated this AM. She states that she feels as though her left foot is improved. Pending arterial US. She is adamant that she does not wish to undergo BKA. Patient had received 6 weeks of IV abx previously about one year ago. She states she wishes to try this again. Will f/u on blood cultures at this time. Will place PICC line likely on Tuesday and arrange for C for IV abx once cultures are negative x48h
[2024-12-28] MEDS: INSULIN DEGLUDEC 5 UNIT/0.05 ML (PER 5 UNITS) SC (09:50)
--- NOTE | 2024-12-28 10:10 | XR_ITS ---
Examination: Arterial duplex lower extremity study. Date and time of exam: December 28, 2024 1040 hours INDICATIONS: Left foot osteomyelitis left foot leg swelling and pain 5 days Findings: Duplex sonographic imaging of the lower extremity arteries using B-mode/Adams scale imaging and Doppler spectral analysis and color flow. Ankle brachial indices have been recorded. Right ankle/brachial index is 1.2. Left common femoral artery demonstrates triphasic flow. Left superficial femoral artery demonstrates triphasic flow. Left popliteal artery demonstrates triphasic flow. Left posterior tibial artery demonstrated triphasic flow. Left dorsalis pedis artery demonstrated monophasic flow Left ankle/brachial index is 1.2. Impression: No high-grade arterial stenoses left foot with normal ankle-brachial index Monophasic flow in the left dorsalis pedis artery However, CT abdomen aorta iliofemoral runoff post intravenous contrast would best assess for trifurcation vessel arterial disease left lower extremity
--- NOTE | 2024-12-28 16:58 | PC.SS ---
Patient Felipa Cruz is a 49 Year old female admitted for Left Foot Osteomyelitis. SS met with patient at bedside to discuss discharge plan and verify demographic information. Patient reports she lives at home with her mother, Chanda Bills who she reports is her surrogate decision maker, [phone] Patient reports prior to admission she utilized crutches to assist with ambulation. PCP Pal Yadav. At time of discharge patient will return back home. Family will provide transportation. Discharge plan: Home Next of Kin:Mother, Chanda Bills
[2024-12-29] VITALS (9 sets, daily range): BP systolic 101–135; BP diastolic 58–84; PULSE 78–86; RESP 16–96; TEMP 36.1–36.3; O2SAT 94–97; BMI 41.2
[2024-12-29] MEDS: PIPER/TAZO 3.375 GM PREMIX 3.375 GM/50 ML BAG IV ×3 (05:01→21:00)
[2024-12-29 05:44] LABS: Basophils # (Auto) 0.1 Thou/mm3 (0.0-0.2); Basophils % (Auto) 1 % (0-2.5); Eosinophils # (Auto) 0.4 Thou/mm3 (0.0-0.5); Eosinophils % (Auto) 5 % (0-10); Hematocrit 37.2 % (36.0-46.0); Hemoglobin 11.8 g/dL (12.0-16.0); Immature Granulocytes Auto 0.04 Thou/mm3 (0.00-0.00); Lymphocytes # (Auto) 3.3 Thou/mm3 (1.0-4.8); Lymphocytes % (Auto) 36 % (10-50); Mean Corpuscular HGB Conc 31.7 g/dl (31.0-37.0); Mean Corpuscular Hemoglobin 31.5 pg (25.0-35.0); Mean Corpuscular Volume 99 fL (80-100); Monocytes # (Auto) 0.6 Thou/mm3 (0.0-0.8); Monocytes % (Auto) 7 % (0-12); Neutrophils # (Auto) 4.8 Thou/mm3 (1.8-7.7); Neutrophils % (Auto) 52 % (37-80); Nucleated Red Blood Cell # 0.00 Thou/mm3 (0.00-0.00); Nucleated Red Blood Cell % 0 /100 WBC (0); Platelet Count 542 Thou/mm3 (140-440); RDW Standard Deviation 47.1 fL (36.4-46.3); Red Blood Count 3.75 Miln/mm3 (4.00-5.20); White Blood Count 9.2 Thou/mm3 (3.6-11.0)
[2024-12-29 06:12] LABS: Alanine Aminotransferase 16 U/L (10-49); Albumin, Serum 3.7 gm/dL (3.5-5.0); Albumin/Globulin Ratio 1.0 (1.2-2.2); Alkaline Phosphatase 72 U/L (46-116); Anion Gap 11 (7-16); Aspartate Amino Transferase 25 U/L (0-34); BUN/Creatinine Ratio 16 Ratio (12-20); Bilirubin,Total 0.2 mg/dL (0.3-1.2); Blood Urea Nitrogen 13 mg/dL (9-23); Calcium 9.1 mg/dL (8.3-10.6); Calcium (Corrected) 9.3 mg/dL (8.5-10.1); Carbon Dioxide 22.8 mMol/L (20.0-31.0); Chloride 106 mMol/L (98-107); Creatinine (Component) 0.8 mg/dL (0.6-1.3); Estimated Creatinine Clearance 111.1 mL/min (>60); Globulin 3.8 gm/dL (2.3-3.5); Glucose 190 mg/dL (74-106); Magnesium 1.6 mg/dL (1.6-2.6); Osmolality,Calculated 284 (275-295); Phosphorous 3.7 mg/dL (2.4-5.1); Potassium 4.5 mMol/L (3.4-5.1); Sodium 140 mMol/L (136-145); Total Protein 7.5 gm/dL (5.7-8.2); eGFR > 60 See Note
[2024-12-29] MEDS: INSULIN LISPRO (AdmeLOG) 1 UNIT/0.01 ML UNIT SC ×4 (07:36→20:46)
[2024-12-29] MEDS: PANTOPRAZOLE 40 MG TABLET PO (08:55)
[2024-12-29] MEDS: INSULIN DEGLUDEC 5 UNIT/0.05 ML (PER 5 UNITS) 15 UNIT SC (08:55)
[2024-12-29] MEDS: Magnesium Sulfate 4 GM Ivpb 4 GM/50 ML BAG IV (08:56)
[2024-12-29] MEDS: SODIUM CHLORIDE 0.9% 1000 ML 1,000 ML 75 ML IV ×2 (08:56→20:46)
--- NOTE | 2024-12-29 09:36 | ESPR_ITS ---
<Statement entered by Jose Wismean MD - 12/29/24 13:46> Patient was examined and case was reviewed with team including attending physician. Note reviewed, I agree with most of its contents and agree with the patient's care as documented by Dr. Koenig Patient seen today at the bedside found awake, alert, orientedx3. No overnight events reported. Vitals and labs reviewed. Patient currently on IV antibiotic therapy. Insulin regimen adjusted. Patient still refuses to have any type of surgery at this time. ID specialist consulted will await his recommendations regards to placing PICC line and discharging with IV antibiotics. Of note patient has already had IV antibiotic therapy with a PICC line placed about a year ago. General surgery signed off the case as patient refuses to have surgery. Case discussed with my attending Dr. Nellie Wiseman MD PGY-2 Disclaimer: Despite multiple revisions, due to the dictation software being used, the document bellow may not be free of grammatical errors including phonetic/typographic errors. However, this does not deter from our commitment to providing health care in the patient's best interest in mind. Documentation for date of: 12/29/24 Subjective Subjective Interval history: 12/29/24: NAEON. VSS. Patient denies any pain, fever, chills, shortness of breath or chest pain. Tolerating diet well and denies nay nausea and vomiting. Exam Vital Signs Temp Pulse Resp BP Pulse Ox O2 Del Method 97.3 F 84 18 133/84 H 95 Room Air 12/29/24 08:00 12/29/24 08:55 12/29/24 08:07 12/29/24 08:55 12/29/24 08:00 12/29/24 08:00 Narrative Exam Gen: Well-developed and well-nourished. Laying comfortably on bed. HEENT: NCAT, EOMI, MMM, anicteric conjunctivae. CVS: normal S1 and S2. RRR. No M/R/G. Resp: CTA B/L. No rhonchi, rales, crackles or wheezing. Ext:warm and well perfused Neuro: Cranial nerve II to XII grossly intact. Bilateral upper extremity 5/5. Bilateral lower extremity 5/5. normal sensation to both upper and lower limbs bilaterally. GCS 15 Skin: left lower extremity appears warm to touch, improved from yesterday. Abdomen: Abdomen is nondistended with no tenderness to palpation. No guarding, rigidity or peritinic sign. MSK: Left foot appears edematous. There is a large soft compressible approximately 10cm mass on the lateral side of left foot with no discharge or oozing which is nontender to palpation. Psych: appropriate mood and affect. Objective Labs 12/30/24 05:50 12/30/24 05:50 Labs: Laboratory Results - last 24 hr 12/29/24 05:32 WBC 9.2 RBC 3.75 L Hgb 11.8 L Hct 37.2 MCV 99 MCH 31.5 MCHC 31.7 RDW Std Deviation 47.1 H Plt Count 542 H D Neut % (Auto) 52 Lymph % (Auto) 36 [place] % (Auto) 7 Eos % (Auto) 5 Baso % (Auto) 1 Neut # (Auto) 4.8 Lymph # (Auto) 3.3 [place] # (Auto) 0.6 Eos # (Auto) 0.4 Baso # (Auto) 0.1 Immature Gran # (Auto) 0.04 H Absolute Nucleated RBC 0.00 Immature Gran % 0 Nucleated RBC % 0 Sodium 140 Potassium 4.5 Chloride 106 Carbon Dioxide 22.8 Anion Gap 11 BUN 13 Creatinine 0.8 Estim Creat Clear Calc 111.1 eGFR > 60 BUN/Creatinine Ratio 16 Glucose 190 H Calculated Osmolality 284 Calcium 9.1 Corrected Calcium 9.3 Phosphorus 3.7 Magnesium 1.6 Total Bilirubin 0.2 L AST 25 ALT 16 Alkaline Phosphatase 72 Total Protein 7.5 Albumin 3.7 Globulin 3.8 H Albumin/Globulin Ratio 1.0 L Quality Measures Quality Measures none Assessment & Plan Assessment Current Active Medications: Generic Name Dose Route Start Last Admin Trade Name Freq PRN Reason Stop Dose Admin Acetaminophen 650 mg 12/27/24 15:06 Acetaminophen 325 Mg Tablet PO 01/26/25 15:05 Q6H PRN Fever >101.5 Dextrose 25 ml 12/27/24 15:52 Dextrose 50%-Water Inj 50 Ml Syringe IV 01/26/25 15:51 Q15MIN PRN BG 50-70 responsive npo pt Dextrose 50 ml 12/27/24 15:52 Dextrose 50%-Water Inj 50 Ml Syringe IV 01/26/25 15:51 Q15MIN PRN BG <50 OR BG <70 & pt unresponsive Glucagon 1 mg 12/27/24 15:52 Glucagon Inj 1 Mg Vial IM Q15MIN PRN BG <70, and no IV access Sodium Chloride 1,000 mls @ 75 mls/hr 12/27/24 15:15 12/29/24 08:56 Ns IV 01/26/25 15:14 75 mls/hr .[id number] YESSICA Administration Piperacillin/Tazobactam/Dextrose 3.375 gm in 50 mls @ 100 mls/hr 12/27/24 15:15 12/29/24 05:01 Zosyn IV 01/03/25 15:14 100 mls/hr Q8HR YESSICA Administration Vancomycin HCl 250 mls @ 120 mls/hr 12/28/24 22:00 12/28/24 22:04 Vancomycin/Water 1250 Mg Ivpb IV 01/04/25 21:59 120 mls/hr Q12H YESSICA Administration Protocol Magnesium Sulfate 4 gm in 50 mls @ 12.5 mls/hr 12/29/24 08:17 12/29/24 08:56 Magnesium Sulfate Ivpb IV 12/29/24 12:16 12.5 mls/hr X1 ONE Administration Ibuprofen 600 mg 12/27/24 15:06 Ibuprofen Tab 600 Mg Tablet PO 01/26/25 15:05 Q6H PRN PAIN SCALE 1-3 (mild Insulin Degludec 15 unit 12/29/24 09:00 12/29/24 08:55 Insulin Degludec 5 Unit/0.05 Ml (Per 5 Units) SC 01/28/25 08:59 15 unit QDAY YESSICA Administration Insulin Human Lispro 0 unit 12/28/24 20:45 12/29/24 07:36 Insulin Lispro (Admelog) 1 Unit/0.01 Ml Unit SC 01/27/25 20:44 2 unit ACHS YESSICA Administration Protocol Lisinopril 5 mg 12/29/24 09:00 12/29/24 08:55 Lisinopril 2.5 Mg Tablet PO 01/28/25 08:59 5 mg QDAY YESSICA Administration Morphine Sulfate 2 mg 12/27/24 15:11 Morphine Sulf Inj 10 Mg/Ml Vial IVP 01/01/25 15:10 Q4HR PRN PAIN SCALE 7-10 (Severe Ondansetron HCl 4 mg 12/27/24 15:06 Ondansetron Inj 2 Mg/Ml Inj 2 Ml IVP 01/26/25 15:05 Q6H PRN NAUSEA OR VOMITING Protocol Pantoprazole Sodium 40 mg 12/29/24 09:00 12/29/24 08:55 Pantoprazole 40 Mg Tablet PO 01/28/25 08:59 40 mg DAILY YESSICA Administration Pharmacy Consult 1 each 12/28/24 09:00 Vancomycin Pharmacy To Dose 1 Each Each IV 01/27/25 08:59 QDAY PRN PROTOCOL Plan 49F with PMH of HLD, T2DM, HTN, and chronic left foot diabetic ulcer presents from wound care clinic for evaluation of left foot infection. Patient was hospitalized last year for osteomyelitis of the left foot which was treated with IV Abx. Patient has noticed increasing edema of the left foot since Tuesday. Patient denies any pain but reports numbness in her left foot. management, she states that her last A1C was 7.5. Patient denies any fever, chills, shortness of breath, chest pain, nausea, vomiting, or diarrhea. #Left foot osteomyelitis Patient has had 1x episode of left foot osteomyeliutis last year treated with IV Abx. This is most likely secondary to chronic uncontrolled diabetes and nonhealing pressure ulcers which have developed over time on the lateral aspect of the left foot. Patient is afebrile with stable VSS. On exam, LLE appears warm to touch, left foot is edematous and erythematous with charcot deformity. There is a large soft compressible approximately 10cm mass on the lateral side of left foot with no discharge or oozing which is nontender to palpation. No leukocytosis, remains afebrile with stable vital signs. Recent left foot MRI shows extensive osteomyelitis with extensive cortical bone destruction involving tarsal bones, including distal tibia, talus, calcaneus, cuboid, navicular, medial mid and lateral cuneiforms, bases all metatarsals noted. No fluid-filled drainable soft tissue abscess noted Patient denies recommended below knee amputation plan that was recommended by Dr De La Garza, General Surgery. Patient has been insisting on IV antibiotic treatment. Aterial Duplex US of LLE showed no high-grade arterial stenoses left foot with normal ankle-brachial index and monophasic flow in the left dorsalis pedis artery. Plan: - Consulted Infectious disease, Dr. Barboza, appreciate recs - PICC line to be ordered on Tuesday morning - Referral placed for wound care - Continue Vancomycin (started on 12/27/24) - Continue Zosyn (Started on 12/27/24) - Pending blood culture - Continue IVF maintanence at 75 - prn Ibuprofen, tylenol and morphine for pain #T2DM Uncontrolled. Last A1C per patient was 7.5%. Finger blood glucose: 182 blood glucose: 190 Plan: - SSI - Hypoglycemia protocol in place #HLD Chronic. Managed with atorvastatin Plan: - Continue atorvastatin 40 qday #HTN Chronic Cr of 0.9. Last measurement 135/79 Plan: - Continue home lisinopril #GERD Chronic Plan: -Continue home Protonix Dispo: Admit to med surg DVT prophylaxis: SCDs GI prophylaxis: None Bowel reg: none Diet: low cons carb Pain mgmt: prn Tylenol, Ibuprofen prn morphine 2 mg IV q4h Lines: peripheral Code status: Full code Plan discussed with Dr. Fletcher and Dr. Nellie Koenig DO PGY1 Attending Provider Attestation/Addendum Sonu, Nancy Ballard DO, attest that I was physically present for the bolanos portions of the service and evaluated the patient with the resident and I reviewed and discussed the case with the resident and agree with the resident's findings and plans of care as documented above Patient seen and eval this a.m. No acute events overnight. Pending final cultures of blood culture. If negative x 48 hours, anticipate placement of PICC line Tuesday. Will await ID recommendations for antibiotic regimen on discharge. Patient has no active complaints. No drainage noted from left foot and no significant edema noted.
[2024-12-29] MEDS: VANCOMYCIN/WATER 1250 MG IVPB 250 ML 120 MG IV ×2 (10:26→23:16)
[2024-12-29] MEDS: ATORVASTATIN CALCIUM 20 MG TABLET 40 MG PO (20:46)
[2024-12-29] MEDS: ASCORBIC ACID 250 MG TABLET 500 MG PO (20:46)
--- NOTE | 2024-12-29 22:21 | PC.NURSE ---
spoke with myah from lab regarding patients pending vanco trough. Myah states that it will take another hour or possibly longer to get vanco trough results back as they are having trouble with their chemistry analyzer. Unable to give 229
--- NOTE | 2024-12-29 22:23 | PC.NURSE ---
spoke with myah from lab regarding patients pending vanco trough, myah states it could take an additional hour or possibly longer to receive results as they are having trouble with their chemistry analyzer. Unable to give 2200 vanco dose at this time per protocol.
[2024-12-29 22:51] LABS: Vancomycin,Trough 18.7 mcg/mL (5.0-10.0)
[2024-12-30] VITALS (9 sets, daily range): BP systolic 102–130; BP diastolic 53–78; PULSE 80–85; RESP 17–96; TEMP 36.2–36.6; O2SAT 95–97
[2024-12-30] MEDS: PIPER/TAZO 3.375 GM PREMIX 3.375 GM/50 ML BAG IV ×3 (05:18→22:58)
[2024-12-30 06:19] LABS: Basophils # (Auto) 0.1 Thou/mm3 (0.0-0.2); Basophils % (Auto) 1 % (0-2.5); Eosinophils # (Auto) 0.4 Thou/mm3 (0.0-0.5); Eosinophils % (Auto) 4 % (0-10); Hematocrit 35.9 % (36.0-46.0); Hemoglobin 11.4 g/dL (12.0-16.0); Immature Granulocytes Auto 0.05 Thou/mm3 (0.00-0.00); Lymphocytes # (Auto) 3.4 Thou/mm3 (1.0-4.8); Lymphocytes % (Auto) 31 % (10-50); Mean Corpuscular HGB Conc 31.8 g/dl (31.0-37.0); Mean Corpuscular Hemoglobin 32.0 pg (25.0-35.0); Mean Corpuscular Volume 101 fL (80-100); Monocytes # (Auto) 0.7 Thou/mm3 (0.0-0.8); Monocytes % (Auto) 7 % (0-12); Neutrophils # (Auto) 6.1 Thou/mm3 (1.8-7.7); Neutrophils % (Auto) 57 % (37-80); Nucleated Red Blood Cell # 0.00 Thou/mm3 (0.00-0.00); Nucleated Red Blood Cell % 0 /100 WBC (0); Platelet Count 535 Thou/mm3 (140-440); RDW Standard Deviation 48.1 fL (36.4-46.3); Red Blood Count 3.56 Miln/mm3 (4.00-5.20); White Blood Count 10.8 Thou/mm3 (3.6-11.0)
[2024-12-30 06:42] LABS: Alanine Aminotransferase 16 U/L (10-49); Albumin, Serum 3.6 gm/dL (3.5-5.0); Albumin/Globulin Ratio 1.0 (1.2-2.2); Alkaline Phosphatase 71 U/L (46-116); Anion Gap 10 (7-16); Aspartate Amino Transferase 23 U/L (0-34); BUN/Creatinine Ratio 15 Ratio (12-20); Bilirubin,Total 0.3 mg/dL (0.3-1.2); Blood Urea Nitrogen 12 mg/dL (9-23); Calcium 8.9 mg/dL (8.3-10.6); Calcium (Corrected) 9.2 mg/dL (8.5-10.1); Carbon Dioxide 22.3 mMol/L (20.0-31.0); Chloride 107 mMol/L (98-107); Creatinine (Component) 0.8 mg/dL (0.6-1.3); Estimated Creatinine Clearance 109.3 mL/min (>60); Globulin 3.6 gm/dL (2.3-3.5); Glucose 168 mg/dL (74-106); Magnesium 2.1 mg/dL (1.6-2.6); Osmolality,Calculated 281 (275-295); Phosphorous 3.9 mg/dL (2.4-5.1); Potassium 4.4 mMol/L (3.4-5.1); Sodium 139 mMol/L (136-145); Total Protein 7.2 gm/dL (5.7-8.2); eGFR > 60 See Note
[2024-12-30] MEDS: INSULIN LISPRO (AdmeLOG) 1 UNIT/0.01 ML UNIT SC ×4 (07:39→20:58)
--- NOTE | 2024-12-30 08:25 | ESPR_ITS ---
<Statement entered by Jose Wiseman MD - 12/30/24 12:47> Patient was examined and case was reviewed with team including attending physician. Note reviewed, I agree with most of its contents and agree with the patient's care as documented by Dr. Perez Patient seen today at the bedside found awake, alert, orientedx3. No overnight events reported. Vitals and labs reviewed. No active complaints at this time. Insulin regimen adjusted. PICC line order placed for tomorrow. For IV antibiotic therapy. Will await infectious disease recommendations at this time. As patient does not want to have any type of surgery. Case discussed with my attending Dr. Nellie Wiseman MD PGY-2 Disclaimer: Despite multiple revisions, due to the dictation software being used, the document bellow may not be free of grammatical errors including phonetic/typographic errors. However, this does not deter from our commitment to providing health care in the patient's best interest in mind. Documentation for date of: 12/30/24 Subjective Subjective Interval history: NAOE. VSS. Patient denies any pain, fever, chills, shortness of breath or chest pain. Tolerating diet well and denies nay nausea and vomiting. Pending PICC placement tomorrow Exam Vital Signs Temp Pulse Resp BP Pulse Ox O2 Del Method 97.9 F 84 18 118/78 97 Room Air 12/30/24 04:00 12/30/24 04:00 12/30/24 04:00 12/30/24 04:00 12/30/24 04:00 12/30/24 04:00 Narrative Exam Gen: Well-developed and well-nourished. Laying comfortably on bed. HEENT: NCAT, EOMI, MMM, anicteric conjunctivae. CVS: normal S1 and S2. RRR. No M/R/G. Resp: CTA B/L. No rhonchi, rales, crackles or wheezing. Ext:warm and well perfused Neuro: Cranial nerve II to XII grossly intact. Bilateral upper extremity 5/5. Bilateral lower extremity 5/5. normal sensation to both upper and lower limbs bilaterally. GCS 15 Skin: left lower extremity appears warm to touch, improved from yesterday. Abdomen: Abdomen is nondistended with no tenderness to palpation. No guarding, rigidity or peritinic sign. MSK: Left foot appears edematous. There is a large soft compressible approximately 10cm mass on the lateral side of left foot with no discharge or oozing which is nontender to palpation. Psych: appropriate mood and affect. Objective Labs 12/31/24 05:26 12/31/24 05:26 Labs: Laboratory Results - last 24 hr 12/29/24 12/30/24 20:45 05:50 WBC 10.8 RBC 3.56 L Hgb 11.4 L Hct 35.9 L MCV 101 H MCH 32.0 MCHC 31.8 RDW Std Deviation 48.1 H Plt Count 535 H Neut % (Auto) 57 Lymph % (Auto) 31 [place] % (Auto) 7 Eos % (Auto) 4 Baso % (Auto) 1 Neut # (Auto) 6.1 Lymph # (Auto) 3.4 [place] # (Auto) 0.7 Eos # (Auto) 0.4 Baso # (Auto) 0.1 Immature Gran # (Auto) 0.05 H Absolute Nucleated RBC 0.00 Immature Gran % 1 H Nucleated RBC % 0 Sodium 139 Potassium 4.4 Chloride 107 Carbon Dioxide 22.3 Anion Gap 10 BUN 12 Creatinine 0.8 Estim Creat Clear Calc 109.3 eGFR > 60 BUN/Creatinine Ratio 15 Glucose 168 H Calculated Osmolality 281 Calcium 8.9 Corrected Calcium 9.2 Phosphorus 3.9 Magnesium 2.1 Total Bilirubin 0.3 AST 23 ALT 16 Alkaline Phosphatase 71 Total Protein 7.2 Albumin 3.6 Globulin 3.6 H Albumin/Globulin Ratio 1.0 L Vancomycin Trough 18.7 H Quality Measures Quality Measures none Assessment & Plan Assessment Current Active Medications: Generic Name Dose Route Start Last Admin Trade Name Freq PRN Reason Stop Dose Admin Acetaminophen 650 mg 12/27/24 15:06 Acetaminophen 325 Mg Tablet PO 01/26/25 15:05 Q6H PRN Fever >101.5 Ascorbic Acid 500 mg 12/29/24 21:00 12/29/24 20:46 Ascorbic Acid 250 Mg Tablet PO 01/28/25 20:59 500 mg BID YESSICA Administration Atorvastatin Calcium 40 mg 12/29/24 21:00 12/29/24 20:46 Atorvastatin Calcium 20 Mg Tablet PO 01/28/25 20:59 40 mg HS YESSICA Administration Dextrose 25 ml 12/27/24 15:52 Dextrose 50%-Water Inj 50 Ml Syringe IV 01/26/25 15:51 Q15MIN PRN BG 50-70 responsive npo pt Dextrose 50 ml 12/27/24 15:52 Dextrose 50%-Water Inj 50 Ml Syringe IV 01/26/25 15:51 Q15MIN PRN BG <50 OR BG <70 & pt unresponsive Glucagon 1 mg 12/27/24 15:52 Glucagon Inj 1 Mg Vial IM Q15MIN PRN BG <70, and no IV access Sodium Chloride 1,000 mls @ 75 mls/hr 12/27/24 15:15 12/29/24 20:46 Ns IV 01/26/25 15:14 75 mls/hr .[id number] YESSICA Administration Piperacillin/Tazobactam/Dextrose 3.375 gm in 50 mls @ 100 mls/hr 12/27/24 15:15 12/30/24 05:18 Zosyn IV 01/03/25 15:14 100 mls/hr Q8HR YESSICA Administration Vancomycin HCl 200 mls @ 120 mls/hr 12/30/24 10:00 Vancomycin/Water 1gm Ivpb IV 01/06/25 09:59 Q12H YESSICA Ibuprofen 600 mg 12/27/24 15:06 Ibuprofen Tab 600 Mg Tablet PO 01/26/25 15:05 Q6H PRN PAIN SCALE 1-3 (mild Insulin Degludec 20 unit 12/30/24 09:00 Insulin Degludec 5 Unit/0.05 Ml (Per 5 Units) SC 01/29/25 08:59 QDAY [facility] Insulin Human Lispro 0 unit 12/28/24 20:45 12/30/24 07:39 Insulin Lispro (Admelog) 1 Unit/0.01 Ml Unit SC 01/27/25 20:44 2 unit ACHS YESSICA Administration Protocol Lisinopril 5 mg 12/29/24 09:00 12/29/24 08:55 Lisinopril 2.5 Mg Tablet PO 01/28/25 08:59 5 mg QDAY YESSICA Administration Morphine Sulfate 2 mg 12/27/24 15:11 Morphine Sulf Inj 10 Mg/Ml Vial IVP 01/01/25 15:10 Q4HR PRN PAIN SCALE 7-10 (Severe Multivitamins 1 tab 12/30/24 09:00 Multivitamins Tablet PO 01/29/25 08:59 QDAY YESSICA Ondansetron HCl 4 mg 12/27/24 15:06 Ondansetron Inj 2 Mg/Ml Inj 2 Ml IVP 01/26/25 15:05 Q6H PRN NAUSEA OR VOMITING Protocol Pantoprazole Sodium 40 mg 12/29/24 09:00 12/29/24 08:55 Pantoprazole 40 Mg Tablet PO 01/28/25 08:59 40 mg DAILY [facility] Administration Pharmacy Consult 1 each 12/28/24 09:00 Vancomycin Pharmacy To Dose 1 Each Each IV 01/27/25 08:59 QDAY PRN PROTOCOL Zinc Sulfate 220 mg 12/30/24 09:00 Zinc Sulfate 220 Mg Capsule PO 01/29/25 08:59 QDAY [facility] Plan 49F with PMH of HLD, T2DM, HTN, and chronic left foot diabetic ulcer presents from wound care clinic for evaluation of left foot infection. Patient was hospitalized last year for osteomyelitis of the left foot which was treated with IV Abx. Patient has noticed increasing edema of the left foot since Tuesday. Patient denies any pain but reports numbness in her left foot. management, she states that her last A1C was 7.5. Patient denies any fever, chills, shortness of breath, chest pain, nausea, vomiting, or diarrhea. #Left foot osteomyelitis Patient has had 1x episode of left foot osteomyeliutis last year treated with IV Abx. This is most likely secondary to chronic uncontrolled diabetes and nonhealing pressure ulcers which have developed over time on the lateral aspect of the left foot. Patient is afebrile with stable VSS. On exam, LLE appears warm to touch, left foot is edematous and erythematous with charcot deformity. There is a large soft compressible approximately 10cm mass on the lateral side of left foot with no discharge or oozing which is nontender to palpation. No leukocytosis, remains afebrile with stable vital signs. Recent left foot MRI shows extensive osteomyelitis with extensive cortical bone destruction involving tarsal bones, including distal tibia, talus, calcaneus, cuboid, navicular, medial mid and lateral cuneiforms, bases all metatarsals noted. No fluid-filled drainable soft tissue abscess noted Patient denies recommended below knee amputation plan that was recommended by Dr De La Garza, General Surgery. Patient has been insisting on IV antibiotic treatment. Aterial Duplex US of LLE showed no high-grade arterial stenoses left foot with normal ankle-brachial index and monophasic flow in the left dorsalis pedis artery. Blood cx NGTD at 48 hours Plan: - Consulted Infectious disease, Dr. Barboza, appreciate recs - PICC line to be ordered on Tuesday morning (12/31) - Referral placed for wound care - Continue Vancomycin (started on 12/27/24) - Continue Zosyn (Started on 12/27/24) - Pending blood culture final - Continue IVF maintanence at 75 - prn Ibuprofen, tylenol and morphine for pain #T2DM Uncontrolled. Last A1C per patient was 7.5%. Finger blood glucose: 182 blood glucose: 190 Plan: - SSI - Hypoglycemia protocol in place #HLD Chronic. Managed with atorvastatin Plan: - Continue atorvastatin 40 qday #HTN Chronic Cr of 0.9. Last measurement 135/79 Plan: - Continue home lisinopril #GERD Chronic Plan: -Continue home Protonix Dispo: Pending PICC line placement 12/31 DVT prophylaxis: SCDs GI prophylaxis: None Bowel reg: none Diet: low cons carb Pain mgmt: prn Tylenol, Ibuprofen prn morphine 2 mg IV q4h Lines: peripheral Code status: Full code Plan discussed with Dr. Fletcher and Dr. Nellie Perez MD PGY1 Attending Provider Attestation/Addendum I, Nancy Ballard DO, attest that I was physically present for the bolanos portions of the service and evaluated the patient with the resident and I reviewed and discussed the case with the resident and agree with the resident's findings and plans of care as documented above Patient seen and evaluated this AM, without any acute complaints. Patient states she is feeling well. BC has been NGTD for 48hrs. Pending ID recommendations. Will likely place PICC line tomorrow to continue with IV abx with home health with doxycycline.
[2024-12-30] MEDS: ZINC SULFATE 220 MG CAPSULE PO (08:50)
[2024-12-30] MEDS: MULTIVITAMINS TABLET 1 TAB PO (08:50)
[2024-12-30] MEDS: ASCORBIC ACID 250 MG TABLET 500 MG PO ×2 (08:50→20:59)
[2024-12-30] MEDS: PANTOPRAZOLE 40 MG TABLET PO (08:50)
[2024-12-30] MEDS: INSULIN DEGLUDEC 5 UNIT/0.05 ML (PER 5 UNITS) 20 UNIT SC (08:51)
[2024-12-30] MEDS: VANCOMYCIN/WATER 1GM IVPB 200 ML IV ×2 (09:23→21:01)
[2024-12-30] MEDS: SODIUM CHLORIDE 0.9% 1000 ML 1,000 ML 75 ML IV (11:43)
[2024-12-30] MEDS: ATORVASTATIN CALCIUM 20 MG TABLET 40 MG PO (20:59)
[2024-12-31] VITALS: BP 112/71; PULSE 77; RESP 18; TEMP 36.1; O2SAT 97
[2024-12-31] MEDS: SODIUM CHLORIDE 0.9% 1000 ML 1,000 ML 75 ML IV (02:37)
[2024-12-31 04:00] VITALS: BP 101/51; PULSE 84; RESP 18; TEMP 36.4; O2SAT 97
[2024-12-31] MEDS: PIPER/TAZO 3.375 GM PREMIX 3.375 GM/50 ML BAG IV (05:23)
[2024-12-31 06:22] LABS: Basophils # (Auto) 0.0 Thou/mm3 (0.0-0.2); Basophils % (Auto) 0 % (0-2.5); Eosinophils # (Auto) 0.4 Thou/mm3 (0.0-0.5); Eosinophils % (Auto) 4 % (0-10); Hematocrit 34.7 % (36.0-46.0); Hemoglobin 10.9 g/dL (12.0-16.0); Immature Granulocytes Auto 0.04 Thou/mm3 (0.00-0.00); Lymphocytes # (Auto) 3.2 Thou/mm3 (1.0-4.8); Lymphocytes % (Auto) 32 % (10-50); Mean Corpuscular HGB Conc 31.4 g/dl (31.0-37.0); Mean Corpuscular Hemoglobin 31.7 pg (25.0-35.0); Mean Corpuscular Volume 101 fL (80-100); Monocytes # (Auto) 0.6 Thou/mm3 (0.0-0.8); Monocytes % (Auto) 6 % (0-12); Neutrophils # (Auto) 5.8 Thou/mm3 (1.8-7.7); Neutrophils % (Auto) 57 % (37-80); Nucleated Red Blood Cell # 0.00 Thou/mm3 (0.00-0.00); Nucleated Red Blood Cell % 0 /100 WBC (0); Platelet Count 510 Thou/mm3 (140-440); RDW Standard Deviation 47.5 fL (36.4-46.3); Red Blood Count 3.44 Miln/mm3 (4.00-5.20); White Blood Count 10.1 Thou/mm3 (3.6-11.0)
[2024-12-31 06:51] LABS: Alanine Aminotransferase 14 U/L (10-49); Albumin, Serum 3.5 gm/dL (3.5-5.0); Albumin/Globulin Ratio 1.0 (1.2-2.2); Alkaline Phosphatase 72 U/L (46-116); Anion Gap 10 (7-16); Aspartate Amino Transferase 20 U/L (0-34); BUN/Creatinine Ratio 18 Ratio (12-20); Bilirubin,Total 0.3 mg/dL (0.3-1.2); Blood Urea Nitrogen 14 mg/dL (9-23); Calcium 9.1 mg/dL (8.3-10.6); Calcium (Corrected) 9.5 mg/dL (8.5-10.1); Carbon Dioxide 21.7 mMol/L (20.0-31.0); Chloride 108 mMol/L (98-107); Creatinine (Component) 0.8 mg/dL (0.6-1.3); Estimated Creatinine Clearance 109.3 mL/min (>60); Globulin 3.6 gm/dL (2.3-3.5); Glucose 179 mg/dL (74-106); Magnesium 1.7 mg/dL (1.6-2.6); Osmolality,Calculated 283 (275-295); Phosphorous 3.9 mg/dL (2.4-5.1); Potassium 5.0 mMol/L (3.4-5.1); Sodium 140 mMol/L (136-145); Total Protein 7.1 gm/dL (5.7-8.2); eGFR > 60 See Note
[2024-12-31 07:45] VITALS: BP 126/75; PULSE 88; RESP 17; TEMP 36.6; O2SAT 96
--- NOTE | 2024-12-31 08:09 | PD.RESPRO ---
Documentation for date of: 12/31/24 Subjective Subjective Interval history: 12/31/24: MURRAY. BHAKTIS. Exam Vital Signs Temp Pulse Resp BP Pulse Ox O2 Del Method 97.6 F 84 18 101/51 L 97 Room Air 12/31/24 04:00 12/31/24 04:00 12/31/24 04:00 12/31/24 04:00 12/31/24 04:00 12/31/24 04:00 Narrative Exam Gen: Well-developed and well-nourished. Laying comfortably on bed. HEENT: NCAT, EOMI, MMM, anicteric conjunctivae. CVS: normal S1 and S2. RRR. No M/R/G. Resp: CTA B/L. No rhonchi, rales, crackles or wheezing. Ext:warm and well perfused Neuro: Cranial nerve II to XII grossly intact. Bilateral upper extremity 5/5. Bilateral lower extremity 5/5. normal sensation to both upper and lower limbs bilaterally. GCS 15 Skin: left lower extremity appears warm to touch, improved from yesterday. Abdomen: Abdomen is nondistended with no tenderness to palpation. No guarding, rigidity or peritinic sign. MSK: Left foot appears edematous. There is a large soft compressible approximately 10cm mass on the lateral side of left foot with no discharge or oozing which is nontender to palpation. Psych: appropriate mood and affect. Objective Labs 12/31/24 05:26 12/31/24 05:26 Labs: Laboratory Results - last 24 hr 12/31/24 05:26 WBC 10.1 RBC 3.44 L Hgb 10.9 L Hct 34.7 L MCV 101 H MCH 31.7 MCHC 31.4 RDW Std Deviation 47.5 H Plt Count 510 H Neut % (Auto) 57 Lymph % (Auto) 32 [place] % (Auto) 6 Eos % (Auto) 4 Baso % (Auto) 0 Neut # (Auto) 5.8 Lymph # (Auto) 3.2 [place] # (Auto) 0.6 Eos # (Auto) 0.4 Baso # (Auto) 0.0 Immature Gran # (Auto) 0.04 H Absolute Nucleated RBC 0.00 Immature Gran % 0 Nucleated RBC % 0 Sodium 140 Potassium 5.0 D Chloride 108 H Carbon Dioxide 21.7 Anion Gap 10 BUN 14 Creatinine 0.8 Estim Creat Clear Calc 109.3 eGFR > 60 BUN/Creatinine Ratio 18 Glucose 179 H Calculated Osmolality 283 Calcium 9.1 Corrected Calcium 9.5 Phosphorus 3.9 Magnesium 1.7 Total Bilirubin 0.3 AST 20 ALT 14 Alkaline Phosphatase 72 Total Protein 7.1 Albumin 3.5 Globulin 3.6 H Albumin/Globulin Ratio 1.0 L Quality Measures Quality Measures none Assessment & Plan Assessment Current Active Medications: Generic Name Dose Route Start Last Admin Trade Name Fresabas PRN Reason Stop Dose Admin Acetaminophen 650 mg 12/27/24 15:06 Acetaminophen 325 Mg Tablet PO 01/26/25 15:05 Q6H PRN Fever >101.5 Ascorbic Acid 500 mg 12/29/24 21:00 12/30/24 20:59 Ascorbic Acid 250 Mg Tablet PO 01/28/25 20:59 500 mg BID YESSICA Administration Atorvastatin Calcium 40 mg 12/29/24 21:00 12/30/24 20:59 Atorvastatin Calcium 20 Mg Tablet PO 01/28/25 20:59 40 mg HS YESSICA Administration Dextrose 25 ml 12/27/24 15:52 Dextrose 50%-Water Inj 50 Ml Syringe IV 01/26/25 15:51 Q15MIN PRN BG 50-70 responsive npo pt Dextrose 50 ml 12/27/24 15:52 Dextrose 50%-Water Inj 50 Ml Syringe IV 01/26/25 15:51 Q15MIN PRN BG <50 OR BG <70 & pt unresponsive Glucagon 1 mg 12/27/24 15:52 Glucagon Inj 1 Mg Vial IM Q15MIN PRN BG <70, and no IV access Sodium Chloride 1,000 mls @ 75 mls/hr 12/27/24 15:15 12/31/24 02:37 Ns IV 01/26/25 15:14 75 mls/hr .[id number] YESSICA Administration Piperacillin/Tazobactam/Dextrose 3.375 gm in 50 mls @ 100 mls/hr 12/27/24 15:15 12/31/24 05:23 Zosyn IV 01/03/25 15:14 100 mls/hr Q8HR YESSICA Administration Vancomycin HCl 200 mls @ 120 mls/hr 12/30/24 10:00 12/30/24 22:45 Vancomycin/Water 1gm Ivpb IV 01/06/25 09:59 Infused Q12H YESSICA Infusion Protocol Magnesium Sulfate 4 gm in 50 mls @ 12.5 mls/hr 12/31/24 07:41 Magnesium Sulfate Ivpb IV 12/31/24 11:40 X1 ONE Ibuprofen 600 mg 12/27/24 15:06 Ibuprofen Tab 600 Mg Tablet PO 01/26/25 15:05 Q6H PRN PAIN SCALE 1-3 (mild Insulin Degludec 20 unit 12/30/24 09:00 12/30/24 08:51 Insulin Degludec 5 Unit/0.05 Ml (Per 5 Units) SC 01/29/25 08:59 20 unit QDAY YESSICA Administration Insulin Human Lispro 0 unit 12/28/24 20:45 12/30/24 20:58 Insulin Lispro (Admelog) 1 Unit/0.01 Ml Unit SC 01/27/25 20:44 3 unit ACHS YESSICA Administration Protocol Lisinopril 5 mg 12/29/24 09:00 12/30/24 08:50 Lisinopril 2.5 Mg Tablet PO 01/28/25 08:59 5 mg QDAY YESSICA Administration Morphine Sulfate 2 mg 12/27/24 15:11 Morphine Sulf Inj 10 Mg/Ml Vial IVP 01/01/25 15:10 Q4HR PRN PAIN SCALE 7-10 (Severe Multivitamins 1 tab 12/30/24 09:00 12/30/24 08:50 Multivitamins Tablet PO 01/29/25 08:59 1 tab QDAY YESSICA Administration Ondansetron HCl 4 mg 12/27/24 15:06 Ondansetron Inj 2 Mg/Ml Inj 2 Ml IVP 01/26/25 15:05 Q6H PRN NAUSEA OR VOMITING Protocol Pantoprazole Sodium 40 mg 12/29/24 09:00 12/30/24 08:50 Pantoprazole 40 Mg Tablet PO 01/28/25 08:59 40 mg DAILY YESSICA Administration Pharmacy Consult 1 each 12/28/24 09:00 Vancomycin Pharmacy To Dose 1 Each Each IV 01/27/25 08:59 QDAY PRN PROTOCOL Zinc Sulfate 220 mg 12/30/24 09:00 12/30/24 08:50 Zinc Sulfate 220 Mg Capsule PO 01/29/25 08:59 220 mg QDAY YESSICA Administration Plan 49F with PMH of HLD, T2DM, HTN, and chronic left foot diabetic ulcer presents from wound care clinic for evaluation of left foot infection. Patient was hospitalized last year for osteomyelitis of the left foot which was treated with IV Abx. Patient has noticed increasing edema of the left foot since Tuesday. Patient denies any pain but reports numbness in her left foot. management, she states that her last A1C was 7.5. Patient denies any fever, chills, shortness of breath, chest pain, nausea, vomiting, or diarrhea. #Left foot osteomyelitis Patient has had 1x episode of left foot osteomyeliutis last year treated with IV Abx. This is most likely secondary to chronic uncontrolled diabetes and nonhealing pressure ulcers which have developed over time on the lateral aspect of the left foot. Patient is afebrile with stable VSS. On exam, LLE appears warm to touch, left foot is edematous and erythematous with charcot deformity. There is a large soft compressible approximately 10cm mass on the lateral side of left foot with no discharge or oozing which is nontender to palpation. No leukocytosis, remains afebrile with stable vital signs. Recent left foot MRI shows extensive osteomyelitis with extensive cortical bone destruction involving tarsal bones, including distal tibia, talus, calcaneus, cuboid, navicular, medial mid and lateral cuneiforms, bases all metatarsals noted. No fluid-filled drainable soft tissue abscess noted Patient denies recommended below knee amputation plan that was recommended by Dr De La Garza, General Surgery. Patient has been insisting on IV antibiotic treatment. Aterial Duplex US of LLE showed no high-grade arterial stenoses left foot with normal ankle-brachial index and monophasic flow in the left dorsalis pedis artery. Blood cx NGTD at 48 hours Plan: - Consulted Infectious disease, Dr. Barboza, appreciate recs - PICC line to be ordered on Tuesday morning (12/31) - Referral placed for wound care - Continue Vancomycin (started on 12/27/24) - Continue Zosyn (Started on 12/27/24) - Pending blood culture final - Continue IVF maintanence at 75 - prn Ibuprofen, tylenol and morphine for pain #T2DM Uncontrolled. Last A1C per patient was 7.5%. Finger blood glucose: 182 blood glucose: 190 Plan: - SSI - Hypoglycemia protocol in place #HLD Chronic. Managed with atorvastatin Plan: - Continue atorvastatin 40 qday #HTN Chronic Cr of 0.9. Last measurement 135/79 Plan: - Continue home lisinopril #GERD Chronic Plan: -Continue home Protonix Dispo: Pending PICC line placement 12/31 DVT prophylaxis: SCDs GI prophylaxis: None Bowel reg: none Diet: low cons carb Pain mgmt: prn Tylenol, Ibuprofen prn morphine 2 mg IV q4h Lines: peripheral Code status: Full code Plan discussed with Dr. Fletcher and Dr. Nellie Koenig, DO PGY1
[2024-12-31] MEDS: INSULIN LISPRO (AdmeLOG) 1 UNIT/0.01 ML UNIT SC (08:24)
[2024-12-31 08:27] VITALS: BP 126/75; PULSE 88
[2024-12-31] MEDS: INSULIN DEGLUDEC 5 UNIT/0.05 ML (PER 5 UNITS) 25 UNIT SC (08:27)
[2024-12-31] MEDS: PANTOPRAZOLE 40 MG TABLET PO (08:27)
[2024-12-31] MEDS: Magnesium Sulfate 4 GM Ivpb 4 GM/50 ML BAG IV (08:28)
[2024-12-31] MEDS: MULTIVITAMINS TABLET 1 TAB PO (08:28)
[2024-12-31] MEDS: ASCORBIC ACID 250 MG TABLET 500 MG PO (08:28)
[2024-12-31] MEDS: ZINC SULFATE 220 MG CAPSULE PO (08:28)
--- NOTE | 2024-12-31 08:55 | PD.IDPROG ---
Subjective Subjective Interval history: asked to see by primary team. seen last a year ago. dm control not optimal but better than last year. has declined surgery. vascular eval neg. Exam Vital Signs Temp Pulse Resp BP Pulse Ox O2 Del Method 97.8 F 88 17 126/75 96 Room Air 12/31/24 07:45 12/31/24 08:27 12/31/24 07:45 12/31/24 08:27 12/31/24 07:45 12/31/24 07:45 Objective - Internal Medicine Labs 12/31/24 05:26 12/31/24 05:26 Labs: Laboratory Results - last 24 hr 12/31/24 05:26 WBC 10.1 RBC 3.44 L Hgb 10.9 L Hct 34.7 L MCV 101 H MCH 31.7 MCHC 31.4 RDW Std Deviation 47.5 H Plt Count 510 H Neut % (Auto) 57 Lymph % (Auto) 32 [place] % (Auto) 6 Eos % (Auto) 4 Baso % (Auto) 0 Neut # (Auto) 5.8 Lymph # (Auto) 3.2 [place] # (Auto) 0.6 Eos # (Auto) 0.4 Baso # (Auto) 0.0 Immature Gran # (Auto) 0.04 H Absolute Nucleated RBC 0.00 Immature Gran % 0 Nucleated RBC % 0 Sodium 140 Potassium 5.0 D Chloride 108 H Carbon Dioxide 21.7 Anion Gap 10 BUN 14 Creatinine 0.8 Estim Creat Clear Calc 109.3 eGFR > 60 BUN/Creatinine Ratio 18 Glucose 179 H Calculated Osmolality 283 Calcium 9.1 Corrected Calcium 9.5 Phosphorus 3.9 Magnesium 1.7 Total Bilirubin 0.3 AST 20 ALT 14 Alkaline Phosphatase 72 Total Protein 7.1 Albumin 3.5 Globulin 3.6 H Albumin/Globulin Ratio 1.0 L Assessment & Plan A&P Narrative osteo L foot dm II ckd noted in past with prior rx noted a year ago. and declination of surgery, rx can be looked at as more suppressive suggest 6 mo of po doxy 100 bid and f/u with outpt primary. will see again prn. re treating with iv rx unlikely to help her Time Spent With Patient Time: Total time spent is greater than 50% in coordination of care (as documented) at patient's floor/unit and/or counseling patient:
--- NOTE | 2024-12-31 10:58 | PC.SS ---
SS follow up note; Patient will discharge home today, will not need IV ABX.
--- NOTE | 2024-12-31 11:30 | ESDS_ITS ---
<Statement entered by Nancy Ballard DO - 01/01/25 08:05> I, Nancy Ballard DO, attest that I was physically present for the bolanos portions of the service and evaluated the patient with the resident and I reviewed and discussed the case with the resident and agree with the resident's findings and plans of care as documented above <Statement entered by Jose Wiseman MD - 12/31/24 13:33> Patient was examined and case was reviewed with team including attending physician. Note reviewed, I agree with most of its contents and agree with the patient's care as documented by Dr. Koenig Case discussed with my attending Dr. Nellie Wiseman MD PGY-2 Disclaimer: Despite multiple revisions, due to the dictation software being used, the document bellow may not be free of grammatical errors including phonetic/typographic errors. However, this does not deter from our commitment to providing health care in the patient's best interest in mind. Planned Discharge Date 12/31/24 DS: Providers Provider Date of admission: 12/27/24 15:24 Primary care physician: Pal Yadav PA-C Admitting Provider: Augustus Blunt MD Attending Provider on Admission: Nancy Ballard DO Consults: 12/27/24 14:26 Consult to General Surgery Stat Comment: Consulting Provider: Berny De La Garza 12/27/24 15:11 Consult to Infectious Diseases Routine Comment: Left foot osteomyelitis Consulting Provider: Karthik Barboza 12/27/24 15:14 Consult to General Surgery Stat Comment: Consulting Provider: Berny De La Garza Referral Wound Care Routine Comment: Attending Provider on DC: Dr. Ballard Discharging Provider: Resident Miguel Anticipated date of discharge: 12/31/24 DS: Diagnosis Problem List Completed Was Problem List Reviewed/Reconciled?: Yes Hospital Course Hospital Course Hospital course: 49F with PMH of HLD, T2DM, HTN, and chronic left foot diabetic ulcer presented from wound care clinic for evaluation of left foot infection. Patient was hospitalized last year for osteomyelitis of the left foot which was treated with IV Abx. Patient has noticed increasing edema of the left foot since Tuesday. Patient denied any pain but reports numbness in her left foot. In regards to her diabetes management, she states that her last A1C was 7.5. Patient denied any fever, chills, shortness of breath, chest pain, nausea, vomiting, or diarrhea. Her left foot osteomyelitis is most likely secondary to chronic uncontrolled diabetes and nonhealing pressure ulcers which have developed over time on the lateral aspect of the left foot. Throughout her hospitalization patient remained afebrile with no leukocytosis and stable VSS. On exam, LLE appears warm to touch, left foot is edematous and erythematous with charcot deformity. There is a large soft compressible approximately 10cm mass on the lateral side of left foot with no discharge or oozing which is nontender to palpation. Recent left foot MRI shows extensive osteomyelitis with extensive cortical bone destruction involving tarsal bones, including distal tibia, talus, calcaneus, cuboid, navicular, medial mid and lateral cuneiforms, bases all metatarsals noted. No fluid-filled drainable soft tissue abscess noted. Patient was started on Vancomycin and Zosyn. General surgery was consulted who offered below knee amputation to the patient however patient wished to not proceed with surgery and insisted on antibiotic management. Aterial Duplex US of LLE showed no high-grade arterial stenoses left foot with normal ankle-brachial index and monophasic flow in the left dorsalis pedis artery. Blood cultures negative. Initially it was decided to initiate PICC line for the patient for IV antibiotic treatment; however, Infectious Disease recommended that given prior IV antibiotic treatment and declination of surgery by patient, it could be looked at as more suppressive and unlikely to provide any benefits. Recommendation was to prescribe 6 month course of PO doxyxycline 100 BID and follow up with PCP outpatient. Patient will also need to follow up with their PCP in regards to their diabetes management. Patient's all other medical problems were managed accordingly. Patient is in stable condition to be discharged home. All questions answered and ED precautions given. #Left foot osteomyelitis #Charcot foot #T2DM #HLD #HTN #GERD Follow up with primary care physician within 1 week of discharge You have been prescribed doxycycline for 6 months for your osteomyelitis Should symptoms recur or worsen patient is instructed to return to the ED. Plan discussed with Dr. Fletcher and Dr. Nellie Koenig, DO PGY1 Status at Discharge Functional status at discharge: uses cane/walker (Uses Crutches at baseline) Overall status at discharge: patient is back to baseline Time Spent with Patient Time attestation: Total time spent providing and/or coordinating discharge services: Time spent: Greater than 30 minutes Home Health Home Health Referral Orders: 12/31/24 09:58 Home Health Referral Routine Reason For Exam: osteomyelitis Home-Bound The patient must either because of illness or injury, need the aid of supportive devices such as crutches, canes, wheelchairs, and walkers; the use of special transportation; or the assistance of another person in order to leave their place of residence; OR have a condition such that leaving his or her home is medically contraindicated. In addition, the patient also meets the following criteria: patient is normally unable to leave the home and leaving home requires considerable taxing effort. Addendum to Home Health Certification Practitioner's Certification: I certify that the patient has been under my care in the hospital and the care of attending physician (see below). We had a ikil-mf-jewn encounter on (see date below). My clinical findings indicate that the patient is home bound per the above criteria and the Home Health Services noted in these orders are medically necessary. The primary reason for the [id number] encounter is related to the fact that the patient requires home health services. Date Certifying Btyh-fn-Msna Physician Encounter: 12/27/24 Physician's Name who will Assume Oversight for Services: Pal Yadav Physician's Phone No.who will Assume Oversight for Service: OUTSOLE HANDLER - Community Resources: No PT to Evaluate: Yes PT to evaluate and provide a treatmnet plan to increase patient's mobility and strength. Wound Care: No IV Therapy: No RN Safety Evaluation: Yes RN to evaluate and create a plan of care that will produce positive outcomes. Palliative Treatment: No Palliative treatment and evaluate the need for hospice. Home Health Aide - Personal Care: Yes Home Health Aide to assist with any ADL's. Exam Vital Signs Temp Pulse Resp BP Pulse Ox O2 Del Method 97.8 F 88 17 126/75 96 Room Air 12/31/24 07:45 12/31/24 08:27 12/31/24 07:45 12/31/24 08:27 12/31/24 07:45 08/18/25 07:45 Narrative Exam Gen: Well-developed and well-nourished. Laying comfortably on bed. HEENT: NCAT, EOMI, MMM, anicteric conjunctivae. CVS: normal S1 and S2. RRR. No M/R/G. Resp: CTA B/L. No rhonchi, rales, crackles or wheezing. Ext:warm and well perfused Neuro: Cranial nerve II to XII grossly intact. Bilateral upper extremity 5/5. Bilateral lower extremity 5/5. normal sensation to both upper and lower limbs bilaterally. GCS 15 Skin: left lower extremity appears warm to touch, improved from yesterday. Abdomen: Abdomen is nondistended with no tenderness to palpation. No guarding, rigidity or peritinic sign. MSK: Left foot appears edematous. There is a large soft compressible approximately 10cm mass on the lateral side of left foot with no discharge or oozing which is nontender to palpation. Psych: appropriate mood and affect. Discharge Plan Plan Patient Disposition: HOME (Self Care) Care Plan Goals: Follow up with primary care physician within 1 week of discharge You have been prescribed doxycycline for 6 months for your osteomyelitis Should symptoms recur or worsen patient is instructed to return to the ED. Prescriptions/Referrals Prescriptions/Med Rec: New doxycycline hyclate 100 mg capsule 100 mg PO BID 180 Days Qty: 360 0RF Continued lisinopril 5 mg tablet 5 mg PO QDAY Patient Comments: TAKE 1 TABLET BY MOUTH EVERY DAY sulfamethoxazole-trimethoprim [Bactrim DS] 800-160 mg tablet 1 tab PO BID Qty: 14 0RF Mounjaro 5 mg/0.5 mL pen injector 5 mg SUBCUT QWEEK Rx Instructions: tuesday Repatha SureClick 140 mg/mL pen injector 140 mg SUBCUT .[id number] ergocalciferol (vitamin D2) 1,250 mcg (50,000 unit) capsule 1,250 mcg PO DAILY pantoprazole 40 mg tablet,delayed release (DR/EC) 40 mg PO DAILY insulin lispro [Admelog SoloStar U-100 Insulin] 100 unit/mL insulin pen 20 unit SUBCUT AC Patient Comments: INJECT BY SUBCUTANEOUS ROUTE PER PRESCRIBER'S INSTRUCTIONS. 20 UNITS WITH MEALS 3 TIMES A DAY Rx Instructions: with meals insulin glargine [Basaglar KwikPen U-100 Insulin] 100 unit/mL (3 mL) insulin pen 50 unit SUBCUT HS Patient Comments: INJECT 50 UNITS BY SUBCUTANEOUS ROUTE EVERY DAY sumatriptan succinate [Imitrex] 25 mg tablet 25 mg PO Q2H PRN (Reason: migraine headache) Qty: 10 0RF Rx Instructions: do not exceed 8 doses per 24 hrs Referrals: Pal Yadav PA-C [Primary Care Provider] - Patient/Caregiver Discharge Instructions Other Discharge Activity Instructions:: Follow up with primary care physician within 1 week of discharge You have been prescribed doxycycline for 6 months for your osteomyelitis Should symptoms recur or worsen patient is instructed to return to the ED Education Materials: Osteomyelitis Dc Print Language: French Stand Alone Forms: Elyssa Award Info., Patient Portal Info Letter Discharge Order Discharge Orders: Discharge (Routine); Ordered 12/31/24 Ordered By: Jose Wiseman Quality Discharge Quality Measures VTE prophylaxis
[2024-12-31 11:40] VITALS: BP 126/85; PULSE 86; RESP 16; TEMP 36.6; O2SAT 94
--- NOTE | 2024-12-31 13:46 | PC.CC ---
Addendum entered by Eleanor Goff RN 12/31/24 18:14: Louisa oswald accepted and booked, SOC pending Original Note: PRECIOUS ref sent out, waiting for responses
--- NOTE | 2025-01-01 11:44 | PC.CC ---
Louisa made RN aware that patient has declined HH services
== END 2024-12-31 12:27 | disposition home or self-care (01) | DRG 344 ==
LOC: SERX 15:23 → SERHOLD 15:26 → S3NX 19:15
PROVIDERS: Nurse Practitioner Primary Care; Admitting Provider Student in an Organized Health Care Education/Training Program; Emergency Provider Family Medicine; PCP Physician Assistant; Visit Provider Internal Medicine
DX: E11.69 Type 2 diabetes mellitus with other specified complication (principal); I10 Essential (primary) hypertension; Z79.4 Long term (current) use of insulin; E78.5 Hyperlipidemia, unspecified; E11.65 Type 2 diabetes mellitus with hyperglycemia; M86.172 Other acute osteomyelitis, left ankle and foot; I12.9 Hypertensive chronic kidney disease with stage 1 through stage 4 chronic kidney disease, or unspecified chronic kidney disease; K21.9 Gastro-esophageal reflux disease without esophagitis; N18.9 Chronic kidney disease, unspecified; E11.22 Type 2 diabetes mellitus with diabetic chronic kidney disease; L89.899 Pressure ulcer of other site, unspecified stage; L03.116 Cellulitis of left lower limb; E11.610 Type 2 diabetes mellitus with diabetic neuropathic arthropathy
CPT/HCPCS: 36415; 80053; 80202; 83036; 83605; 83735; 84100; 84145; 85025; 85610; 85652; 85730; 86140; 87040; 93926; 96361; 96365; 96366; 99284; J1815; J2543; J3372; J3375; J3475; J7030; A9270

== ENCOUNTER → 2024-12-27 | Outpatient (CLI) | payer MEDICAID, SELFPAY ==
--- NOTE | 2024-12-31 11:45 | ESCONSULT_ITS ---
RE: EMERSON STUART : 1975 DATE OF CONSULTATION: 12/31/2024 REFERRING PHYSICIAN: Dr. Blunt. REASON FOR CONSULTATION: Osteomyelitis of the left foot in a diabetic. HISTORY OF PRESENT ILLNESS: The patient is a 49-year-old diabetic. Her A1c was 11 a year ago, andcurrently is 8.2, which is still a little high, but a lot better than it was. She reports that her diabetes is only health problems and additional osteomyelitis of the left foot, which she had about a year ago, which we treated with a prolonged course of IV and oral antibiotics at that time. PAST SURGICAL HISTORY: Includes only appendectomy and tonsillectomy in the past. ALLERGIES: NONE NOTED. IMMUNIZATIONS: Last tetanus is not known. She does not take a flu shot every year. She has had 3 COVID vaccines and may have had a pneumococcal vaccine, but she is not sure. FAMILY HISTORY: Positive for hypertension and diabetes. SOCIAL HISTORY: She lives with her mother, is not working currently and is not a nonsmoker. PHYSICAL EXAMINATION: GENERAL: On exam, the patient is heavy set. HEENT: Benign. Heart: Benign. Lungs: Benign. Abdomen: Benign. LAB DATA: Her left foot is misshapen and swollen chronically. There is no tenderness and no positive cultures of note. All systemic cultures are negative from sterile sites. There are not even any swab cultures that are positive from other nonsterile sites. The patient has not had aspiration or surgery and she declined the option option of surgery from Dr. De La Garza. Her circulation is grossly intact. Her Left foot is swollen but not tender. guanakito be more of a charcot foot at this time ASSESSMENT: 1. Osteomyelitis of the left foot. vs charcot foot 2. Diabetes. A1c 8.2, improved from 11 a year ago. RECOMMENDATIONS: The patient should be switched to oral doxycycline 100 mg p.o. b.i.d. for 6 months. This is a rather long time. If she has any GI upset, treatment can be switched to something else effective for MRSA and other organisms that may cause infection. Bactrim is okay as long as her renal function is okay. Please check her renal chemistry panel and a CBC monthly while on oral antibiotics. There is no need for followup with Infectious Disease. There is nothing for me to do. DT: 09:10:32 TT: 10:33:00 Ref: [id number] - TID: [id number] MTDD
== END | disposition home or self-care (01) ==
LOC: SWHD 10:31
PROVIDERS: PCP Physician Assistant; Referring Provider Physician Assistant; Visit Provider Student in an Organized Health Care Education/Training Program
DX: L97.522 Non-pressure chronic ulcer of other part of left foot with fat layer exposed (principal); L97.322 Non-pressure chronic ulcer of left ankle with fat layer exposed; M17.0 Bilateral primary osteoarthritis of knee; R60.0 Localized edema; F17.200 Nicotine dependence, unspecified, uncomplicated; L81.9 Disorder of pigmentation, unspecified; M21.6X2 Other acquired deformities of left foot; N18.32 Chronic kidney disease, stage 3b; M25.872 Other specified joint disorders, left ankle and foot; M19.041 Primary osteoarthritis, right hand; M19.042 Primary osteoarthritis, left hand
CPT/HCPCS: 99213; G0463

== ENCOUNTER → 2025-01-03 | Outpatient (CLI) | payer MEDICAID, SELFPAY | END | disposition home or self-care (01) | LOC: SWHD 10:00 | PROVIDERS: PCP Physician Assistant; Referring Provider Physician Assistant; Visit Provider Student in an Organized Health Care Education/Training Program | DX: L97.528 Non-pressure chronic ulcer of other part of left foot with other specified severity (principal); M17.0 Bilateral primary osteoarthritis of knee; M19.042 Primary osteoarthritis, left hand; M19.041 Primary osteoarthritis, right hand; F17.200 Nicotine dependence, unspecified, uncomplicated; M25.872 Other specified joint disorders, left ankle and foot; N18.32 Chronic kidney disease, stage 3b; R60.0 Localized edema; L81.9 Disorder of pigmentation, unspecified; M21.6X2 Other acquired deformities of left foot | CPT/HCPCS: 99213; A9270; G0463 ==

== ENCOUNTER → 2025-01-10 | Outpatient (CLI) | payer MEDICAID, SELFPAY | END | disposition home or self-care (01) | LOC: SWHD 10:54 | PROVIDERS: PCP Physician Assistant; Referring Provider Physician Assistant; Visit Provider Surgery | DX: L97.528 Non-pressure chronic ulcer of other part of left foot with other specified severity (principal); L97.321 Non-pressure chronic ulcer of left ankle limited to breakdown of skin; M17.0 Bilateral primary osteoarthritis of knee; R60.0 Localized edema; F17.200 Nicotine dependence, unspecified, uncomplicated; L81.9 Disorder of pigmentation, unspecified; M21.6X2 Other acquired deformities of left foot; N18.32 Chronic kidney disease, stage 3b; M25.872 Other specified joint disorders, left ankle and foot; M19.041 Primary osteoarthritis, right hand; M19.042 Primary osteoarthritis, left hand | CPT/HCPCS: 99213; A9270; G0463 ==

== ENCOUNTER → 2025-02-01 | Outpatient (CLI) | payer MEDICAID, SELFPAY | END | disposition home or self-care (01) | LOC: SWHD 10:54 | PROVIDERS: PCP Physician Assistant; Referring Provider Physician Assistant; Visit Provider Student in an Organized Health Care Education/Training Program | DX: I87.333 Chronic venous hypertension (idiopathic) with ulcer and inflammation of bilateral lower extremity (principal); L97.811 Non-pressure chronic ulcer of other part of right lower leg limited to breakdown of skin; L97.821 Non-pressure chronic ulcer of other part of left lower leg limited to breakdown of skin; L97.529 Non-pressure chronic ulcer of other part of left foot with unspecified severity; L97.519 Non-pressure chronic ulcer of other part of right foot with unspecified severity; S91.302A Unspecified open wound, left foot, initial encounter; S91.301A Unspecified open wound, right foot, initial encounter; X58.XXXA Exposure to other specified factors, initial encounter; L85.3 Xerosis cutis; I10 Essential (primary) hypertension; M25.872 Other specified joint disorders, left ankle and foot | CPT/HCPCS: 99212; G0463 ==

== ENCOUNTER → 2025-05-01 | Outpatient (CLI) | payer MEDICAID, SELFPAY ==
--- NOTE | 2025-05-01 13:30 | XR_ITS ---
Examination: CT left ankle, without contrast. 2-D sagittal reconstructions. 2-D coronal reconstructions. 3-D reconstructions. Date and time of exam: April, 1244 hours INDICATIONS: Ankle deformity 1 year, diagnosis Charcot joint CTDI: vol (mGy): 4.34 DLP: (mGycm): 111 Technique: Multiple 1.25 mm axial sections of the left ankle have been obtained. 2-D sagittal and coronal reconstructions have been obtained. 3-D reconstructions have been obtained. Low dose protocols were performed. One or more of the following dose reduction techniques were used; automated exposure control, adjustment of the mA and/or KV according to patient size, use of iterative reconstruction technique. Findings: Severe osteopenia Periosteal new bone distal tibial shaft and subtle cortical erosions distal articulating surface of the tibia Gross bone destruction involving the talus especially inferiorly and anteriorly Marked bone destruction involving the subtalar surface of the calcaneus Severe bone destruction involving all tarsal bones especially cuneiforms Extensive soft tissue mass surrounding the ankle IMPRESSION: Severe bone destruction involving ankle as above, osteomyelitis/Charcot joint appearance
--- NOTE | 2025-05-01 14:00 | XR_ITS ---
Examination: CT left foot, without contrast. 2-D sagittal reconstructions. 2-D coronal reconstructions. 3-D reconstructions. Date and time of exam: May 01, 2025, 1244 hours INDICATIONS: Foot swelling and pain deformity 1 year, diagnosis Charcot joint CTDI: vol (mGy): 5.81 DLP: (mGycm): 114 Technique: Multiple 1.25 mm axial sections of the left foot have been obtained. 2-D sagittal and coronal reconstructions have been obtained. 3-D reconstructions have been obtained. Low dose protocols were performed. One or more of the following dose reduction techniques were used; automated exposure control, adjustment of the mA and/or KV according to patient size, use of iterative reconstruction technique. Findings: Periosteal new bone involving the distal tibia Cortical erosions distal articulating surface of the tibia Marked bone destruction involving the talus subtalar surface of the calcaneus, cuboid severe bone destruction involving the cuneiforms Mild erosions involving the bases of the metatarsals The digits are intact IMPRESSION: Marked bone destruction involving the tarsal bones, Charcot joint/osteomyelitis pattern
== END | disposition home or self-care (01) ==
LOC: CCTX 12:22
PROVIDERS: PCP Physician Assistant; Referring Provider Physician Assistant; Visit Provider Physician Assistant
DX: E11.621 Type 2 diabetes mellitus with foot ulcer (principal); M14.672 Charcot's joint, left ankle and foot; M89.8X7 Other specified disorders of bone, ankle and foot
CPT/HCPCS: 73700

== ENCOUNTER → 2025-05-07 | Outpatient (CLI) | payer MEDICAID, SELFPAY ==
--- NOTE | 2025-05-07 11:15 | XR_ITS ---
Examination: Screening digital mammography, bilateral Computer aided detection 3-D breast Tomosynthesis, bilateral Date and time of exam: May 07, 2025, 1117 hours, compared to mammograms dating to June 07, 2017 Indication: Screening Technique: Nonmagnified MLO, CC views of the breasts to been obtained, reconstructed from 3-D Tomosynthesis images. R2 computer aided detection program utilized for evaluation of suspicious masses and/or abnormal calcifications. 3-D Tomosynthesis images obtained. Findings: Scattered areas of fibroglandular density. Benign calcifications No notable suspicious masses Impression: BI-RADS category II: Benign Findings. Recommend 1 year follow-up mammogram.
== END | disposition home or self-care (01) ==
LOC: CDIM 10:48
PROVIDERS: Referring Provider Physician Assistant; Visit Provider Physician Assistant
DX: Z12.31 Encounter for screening mammogram for malignant neoplasm of breast (principal); R92.323 Mammographic fibroglandular density, bilateral breasts; R92.1 Mammographic calcification found on diagnostic imaging of breast
CPT/HCPCS: 77063; 77067